=== PATIENT | male | born 1980 | race American Indian/Alaskan Native ===

== ENCOUNTER 2018-07-06 10:05 | Emergency (ER) | payer MEDICARE, OTHER ==
[2018-07-06 10:14] VITALS: BP 120/69
[2018-07-06] MEDS ORDERED: IBUPROFEN PO ONE (10:28)
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
== END 2018-07-06 10:42 | disposition home or self-care (01) ==
LOC: ED 10:05
DX: R51 Headache (principal); M25.512 Pain in left shoulder; F17.200 Nicotine dependence, unspecified, uncomplicated; V89.2XXA Person injured in unspecified motor-vehicle accident, traffic, initial encounter; Y93.89 Activity, other specified; Y92.488 Other paved roadways as the place of occurrence of the external cause; Y99.8 Other external cause status
CPT/HCPCS: 99282

== ENCOUNTER 2018-10-10 13:14 | Inpatient (IN) | payer MEDICARE ==
[2018-10-10] MEDS ORDERED: ASPIRIN PO ONE (13:42)
[2018-10-10 14:42] LABS: Basophils % (Auto) 1.1 % (0.0-1.8); Eosinophils # (Auto) 0.2 K/mm3 (0.0-0.4); Eosinophils % (Auto) 7.1 % (0.0-4.3); Hematocrit 33.8 % (35.5-45.6); Hemoglobin 11.5 gm/dl (11.8-15.2); Lymphocytes # (Auto) 0.5 K/mm3 (1.2-5.4); Lymphocytes % (Auto) 19.4 % (13.4-35.0); Mean Corpuscular HGB Conc 34 % (32-34); Mean Corpuscular Volume 92 fl (84-94); Monocytes # (Auto) 0.2 K/mm3 (0.0-0.8); Monocytes % (Auto) 8.2 % (0.0-7.3); Platelet Count 122 K/mm3 (140-440); Red Blood Count 3.66 M/mm3 (3.65-5.03); Red Cell Distribution Width 16.7 % (13.2-15.2)
[2018-10-10 14:57] LABS: BUN/Creatinine Ratio 17; Blood Urea Nitrogen 22 mg/dL (9-20); Calcium 9.1 mg/dL (8.4-10.2); Hemolysis Index 13
[2018-10-10] MEDS ORDERED: NACL 0.9% 1000 ML 1,000 ML IV ONE (16:34)
--- NOTE | 2018-10-10 16:43 | Emergency Department Report ---
ED Altered Mental Status HPI - General Chief Complaint: Chest Pain Stated Complaint: AMS Time Seen by Provider: 10/10/18 16:11 Source: patient, family (sister Mervat Nj ), EMS, old records reviewed Mode of arrival: Stretcher Limitations: No Limitations - History of Present Illness Initial Comments: Mr. Lemus is a 38 yo male HIV/AIDS who presents with AMS. His daughter called 911 because he was dazed with repetitive speech. He kept saying "I'm coming. I'm coming." Hx obtained from his sister Mervat Nj, who is his clinical decision maker. Mrs. Nj has noticed decline over the last 3 weeks. She has accompanied Mr. Lemus to his appointments with Dr. Kaiser. She, too, has noticed repetitive speech, drooling, cough. He has not been tastingh is food. He has had bloody diarrhea. "Brain scan" obtained 3 weeks ago was unremarkable according to the sister's report. It appears that his viral load is high. His HAART regimen has been changed recently. Dr. Kaiser recommended waiting to see if he improves. Toxoplasmosis was a consideration according to his sister Mrs. Nj. [facility] Dr. Kaiser Complaint: altered mental status, confusion -: Gradual, week(s) (3) Severity: moderate Consistency of Symptoms: waxing and waning, getting worse Context: HIV Associated Symptoms: malaise - Related Data Home Medications Medication Instructions Recorded Confirmed Last Taken 3 Hiv Meds 02/19/13 02/19/13 Unknown [place] 02/19/13 02/19/13 Unknown Prezcobix 800 mg-150 mg (Nf) 800 mg PO DAILY 02/08/17 02/08/17 1 Day Ago ~02/07/17 Truvada 133 mg-200 mg Tablet 200 mg PO DAILY 02/08/17 02/08/17 1 Day Ago ~02/07/17 Previous Rx's Medication Instructions Recorded Last Taken Type ceFAZolin Sodium [ceFAZolin] 2 gm IV Q8HR 28 Days vial 02/13/17 Unknown Rx Pantoprazole [Protonix TAB] 40 mg PO QDAY #30 tablet 02/16/17 Unknown Rx Sulfamethoxazole/Trimethoprim 1 each PO DAILY #30 tablet 02/16/17 Unknown Rx [Bactrim DS TAB] Zolpidem [Ambien] 10 mg PO QHS PRN #10 tablet 02/16/17 Unknown Rx oxyCODONE /ACETAMINOPHEN [Percocet 1 tab PO Q4H PRN #14 tablet 02/16/17 Unknown Rx 5/325 mg] Ibuprofen 800 mg PO TID 5 Days #15 tablet 07/06/18 Unknown Rx Allergies Allergy/AdvReac Type Severity Reaction Status Date / Time No Known Allergies Allergy Verified 07/06/18 10:11 ED Review of Systems ROS: Stated complaint: AMS Other details as noted in HPI Comment: All other systems reviewed and negative Constitutional: malaise. denies: fever ED Past Medical Hx - Past Medical History Previous Medical History?: Yes Hx Congestive Heart Failure: No Hx Diabetes: No Hx Deep Vein Thrombosis: No Hx Asthma: No Hx COPD: No Hx HIV: Yes - Surgical History Hx Pacemaker: No Hx Internal Defibrillator: No Additional Surgical History: Back - Social History Smoking Status: Current Every Day Smoker - Medications Home Medications: Home Medications Medication Instructions Recorded Confirmed Last Taken Type 3 Hiv Meds 02/19/13 02/19/13 Unknown History [place] 02/19/13 02/19/13 Unknown History Prezcobix 800 mg-150 mg (Nf) 800 mg PO DAILY 02/08/17 02/08/17 1 Day Ago History ~02/07/17 Truvada 133 mg-200 mg Tablet 200 mg PO DAILY 02/08/17 02/08/17 1 Day Ago History ~02/07/17 ceFAZolin Sodium [ceFAZolin] 2 gm IV Q8HR 28 Days vial 02/13/17 Unknown Rx Pantoprazole [Protonix TAB] 40 mg PO QDAY #30 tablet 02/16/17 Unknown Rx Sulfamethoxazole/Trimethoprim 1 each PO DAILY #30 tablet 02/16/17 Unknown Rx [Bactrim DS TAB] Zolpidem [Ambien] 10 mg PO QHS PRN #10 tablet 02/16/17 Unknown Rx oxyCODONE /ACETAMINOPHEN [Percocet 1 tab PO Q4H PRN #14 tablet 02/16/17 Unknown Rx 5/325 mg] Ibuprofen 800 mg PO TID 5 Days #15 tablet 07/06/18 Unknown Rx ED Physical Exam - General Limitations: No Limitations General appearance: alert, in no apparent distress, other (appears chronically ill and debilitated, dry flaky skin generalized global patchy, papular rash) - Head Head exam: Present: atraumatic, normocephalic - Eye Eye exam: Present: normal appearance - ENT ENT exam: Present: mucous membranes moist - Neck Neck exam: Present: normal inspection, full ROM - Respiratory Respiratory exam: Present: normal lung sounds bilaterally. Absent: respiratory distress, wheezes, rales, rhonchi - Cardiovascular Cardiovascular Exam: Present: normal rhythm, bradycardia, normal heart sounds. Absent: systolic murmur, diastolic murmur, rubs, gallop - GI/Abdominal GI/Abdominal exam: Present: soft, normal bowel sounds. Absent: distended, tenderness, guarding, rebound - Rectal Rectal exam: Present: deferred - Extremities Exam Extremities exam: Present: normal inspection - Back Exam Back exam: Present: normal inspection - Neurological Exam Neurological exam: Present: alert, altered (alert to name, slow to respond, frail) - Psychiatric Psychiatric exam: Present: flat affect, other (slow to respond, ) - Skin Skin exam: Present: warm, dry, other (patchy scaly rash generalized). Absent: rash - Assessment Assessment Interval: 24 hours post onset of symptoms +-20 minutes - Level of Consciousness 1a. Level of Consciousness: arousable/minor stimuli - LOC Questions 1b. LOC Questions: answers 1 question correctly - LOC Command 1c. LOC Commands: performs tasks correctly - Best Gaze 2. Best Gaze: normal - Visual 3. Visual: no visual loss - Facial Palsy 4. Facial Palsy: normal symmetrical movement - Motor Arm 5a. Motor Arm Left: no drift 5b. Motor Arm Right: no drift - Motor Leg 6a. Motor Leg Left: no drift 6b. Motor Leg Right: no drift - Limb Ataxia 7. Limb Ataxia: absent - Sensory 8. Sensory: normal - Best Language 9. Best Language: no aphasia - Dysarthria 10. Dysarthria: normal - Extinction and Inattention 11. Extinction/Inattention: no abnormality - Scoring Total Score: 2 Stroke Severity: Minor Stroke ED Course Vital Signs 10/10/18 13:39 Temperature 98.4 F Pulse Rate 42 L Respiratory 18 Rate Blood Pressure 122/81 - Lab Data Result diagrams: 10/10/18 14:03 10/10/18 14:03 Lab Results 10/10/18 10/10/18 10/10/18 Range/Units 13:23 14:03 14:03 WBC 2.8 L (4.5-11.0) K/mm3 RBC 3.66 (3.65-5.03) M/mm3 Hgb 11.5 L (11.8-15.2) gm/dl Hct 33.8 L (35.5-45.6) % MCV 92 (84-94) fl MCH 31 (28-32) pg MCHC 34 (32-34) % RDW 16.7 H (13.2-15.2) % Plt Count 122 L (140-440) K/mm3 Lymph % (Auto) 19.4 (13.4-35.0) % [place] % (Auto) 8.2 H (0.0-7.3) % Eos % (Auto) 7.1 H (0.0-4.3) % Baso % (Auto) 1.1 (0.0-1.8) % Lymph # 0.5 L (1.2-5.4) K/mm3 [place] # 0.2 (0.0-0.8) K/mm3 Eos # 0.2 (0.0-0.4) K/mm3 Baso # 0.0 (0.0-0.1) K/mm3 Seg Neutrophils % 64.2 (40.0-70.0) % Seg Neutrophils # 1.8 (1.8-7.7) K/mm3 Sodium 148 H (137-145) mmol/L Potassium 4.1 (3.6-5.0) mmol/L Chloride 115.1 H (98-107) mmol/L Carbon Dioxide 22 (22-30) mmol/L Anion Gap 15 mmol/L BUN 22 H (9-20) mg/dL Creatinine 1.3 (0.8-1.5) mg/dL Estimated GFR > 60 ml/min BUN/Creatinine Ratio 17 % Glucose 112 H (75-100) mg/dL POC Glucose 184 H (70-105) Calcium 9.1 (8.4-10.2) mg/dL Troponin T < 0.010 (0.00-0.029) ng/mL - Radiology Data Radiology results: report reviewed Chest x-ray: No acute process according to radiology report According to radiology report, CT head: Volume loss with white matter changes - Medical Decision Making Mr. Lemus has hx of HIV/AIDS. His ID specialist Dr. Kaiser at [facility] has initiated altered mental status work up over the past 3 weeks. I spoke with Dr. Perez from [facility] who had access to outpatient chart of Mr. Lemus. His CD4 is 7, noncompliant with ART. Recent CT head volume loss. DDx: TIA, CVA, seizure, HIV encephalopathy, opportunistic infections, HIV- associated dementia, medication effect due immune reconstitution with new ART regimen Aspirin provided. TPA is not indicated with likelihood of HIV related process causing encephalopathy. Admitted to hospitalist service I - NEXUS Criteria Focal neurological deficit present: No Midline spinal tenderness present: No Altered level of consciousness: Yes Intoxication present: No Distracting injury present: No NEXUS results: C-Spine cannot be cleared clinically by these results. Imaging is required. Critical care attestation.: If time is entered above; I have spent that time in minutes in the direct care of this critically ill patient, excluding procedure time. ED Disposition Clinical Impression: AIDS, Acute encephalopathy, Pancytopenia, Noncompliance with medication regimen, Dehydration Disposition: DC-09 OP ADMIT IP TO THIS HOSP Is pt being admited?: Yes Does the pt Need Aspirin: No Condition: Stable Referrals: PRIMARY CARE, [Referring] - 3-5 Days
--- NOTE | 2018-10-10 17:07 | Cat Scan Report ---
PROCEDURE: CT HEAD/BRAIN WO CON TECHNIQUE: Computerized tomography of the head was performed without contrast material. CT DOSE LENGTH PRODUCT: 1048.9 mGycm HISTORY: AMS COMPARISONS: None . FINDINGS: Brain: There is no evidence of intracranial hemorrhage. No parenchymal hemorrhage is seen. No mass lesions or mass effect is identified. No abnormal extra-axial fluid collections or masses are seen. There is mild decreased density seen in the periventricular white matter without mass effect. This i s fairly symmetric and does not exhibit any mass effect consistent with gliosis probably on the basis of microvascular disease or white matter changes of aging. Ventricles: The ventricles, sulcal pattern and fissures are prominent consistent with atrophy. Bone Windows: No evidence of fracture. Paranasal sinuses: Patchy mucosal disease seen in a few of the ethmoid air cells. Visualized portions of paranasal sinuses otherwise are clear. Maxillary sinuses are not included on this exam.. Mastoid air cells: Clear. IMPRESSION: There is evidence of mild atrophy and gliosis. No acute intracranial abnormalities are suspected. Mild paranasal sinus disease as described. . This document is electronically signed by Natan Peres MD., October 10 2018 05:05:32 PM ET
--- NOTE | 2018-10-10 17:12 | XRay Report ---
PROCEDURE: XR CHEST 1V AP TECHNIQUE: Chest radiograph single view. HISTORY: dyspnea COMPARISONS: None . FINDINGS: Heart: Normal. Mediastinum/Vessels: Normal. Lungs/Pleural space: No infiltrate, effusion, or pneumothorax. Bony thorax: No acute osseous abnormality. Life support devices: None. IMPRESSION: No radiographic evidence of acute cardiopulmonary abnormality. This document is electronically signed by Isabell Moran MD., October 10 2018 05:10:23 PM ET
[2018-10-10] MEDS ORDERED: NORCO 5/325 PO ONE (18:44)
[2018-10-10] MEDS ORDERED: ASPIRIN ONE (18:54)
--- NOTE | 2018-10-10 19:13 | History and Physical Report ---
History of Present Illness Chief complaint: He's really confused History of present illness: 38 YO Male with AIDS, Nicotine Dependence presents to ED for evaluation. Pt is confused and unable to provide detailed history. Pt history provided by his family who is at bedside during exam and interview. As per family, the patient has experienced worsening confusion, weakness, and repetitive speech over the past 3 weeks with progressively worsening symptoms during the same time frame. Pt has decreased oral intake, drooling, gait instability. Pt currently requires 5/6 assistance with activities of daily living. Pt sister also reports episode of "bloody diarrhea". EMS notified and upon arrival the patient was found to be in distress, and transported to [facility] ED. Pt seen and evaluated in ED and found to have Encephalopathy, AIDS, and suspected PML. Pt admitted to medical floor. No further history obtainable. Past History Past Medical History: HIV/AIDS Past Surgical History: Other ([facility] surgery) Social history: smoking Family history: no significant family history (reviewed) Medications and Allergies Allergies Allergy/AdvReac Type Severity Reaction Status Date / Time No Known Allergies Allergy Verified 07/06/18 10:11 Home Medications Medication Instructions Recorded Confirmed Last Taken Type 3 Hiv Meds 02/19/13 02/19/13 Unknown History [place] 02/19/13 02/19/13 Unknown History Prezcobix 800 mg-150 mg (Nf) 800 mg PO DAILY 02/08/17 02/08/17 1 Day Ago History ~02/07/17 Truvada 133 mg-200 mg Tablet 200 mg PO DAILY 02/08/17 02/08/17 1 Day Ago History ~02/07/17 ceFAZolin Sodium [ceFAZolin] 2 gm IV Q8HR 28 Days vial 02/13/17 Unknown Rx Pantoprazole [Protonix TAB] 40 mg PO QDAY #30 tablet 02/16/17 Unknown Rx Sulfamethoxazole/Trimethoprim 1 each PO DAILY #30 tablet 02/16/17 Unknown Rx [Bactrim DS TAB] Zolpidem [Ambien] 10 mg PO QHS PRN #10 tablet 02/16/17 Unknown Rx oxyCODONE /ACETAMINOPHEN [Percocet 1 tab PO Q4H PRN #14 tablet 02/16/17 Unknown Rx 5/325 mg] Ibuprofen 800 mg PO TID 5 Days #15 tablet 07/06/18 Unknown Rx Review of Systems ROS unobtainable: due to mental status Exam - Constitutional Vitals: Temp Pulse Resp BP Pulse Ox 98.4 F 42 L 18 122/81 10/10/18 13:39 10/10/18 13:39 10/10/18 13:39 10/10/18 13:39 General appearance: Present: mild distress, cachectic, disheveled - EENT Eyes: Present: PERRL ENT: hearing intact, clear oral mucosa - Neck Neck: Present: supple, normal ROM - Respiratory Respiratory effort: normal Respiratory: bilateral: CTA - Cardiovascular Heart Sounds: Present: S1 & S2. Absent: rub, click - Extremities Extremities: pulses symmetrical Extremity abnormal: edema Peripheral Pulses: within normal limits - Abdominal General gastrointestinal: Present: soft, non-tender, non-distended, normal bowel sounds Male genitourinary: Present: normal - Integumentary Integumentary: Present: dry, rash, decreased turgor - Musculoskeletal Musculoskeletal: generalized weakness - Psychiatric Psychiatric: no appropriate mood/affect, no intact judgment & insight, no memory intact - Neurologic Neurologic: CNII-XII intact, moves all extremities, no gait normal Results - Labs CBC & Chem 7: 10/10/18 14:03 10/10/18 14:03 Labs: Abnormal lab results 10/10/18 10/10/18 10/10/18 Range/Units 13:23 14:03 14:03 WBC 2.8 L (4.5-11.0) K/mm3 Hgb 11.5 L (11.8-15.2) gm/dl Hct 33.8 L (35.5-45.6) % RDW 16.7 H (13.2-15.2) % Plt Count 122 L (140-440) K/mm3 [place] % (Auto) 8.2 H (0.0-7.3) % Eos % (Auto) 7.1 H (0.0-4.3) % Lymph # 0.5 L (1.2-5.4) K/mm3 Sodium 148 H (137-145) mmol/L Chloride 115.1 H (98-107) mmol/L BUN 22 H (9-20) mg/dL Glucose 112 H (75-100) mg/dL POC Glucose 184 H (70-105) Assessment and Plan - Patient Problems (1) AIDS Current Visit: Yes Status: Acute Plan to address problem: continue HAART therapy, continue Bactrim daily, ID consulted in ED (2) Acute encephalopathy Current Visit: Yes Status: Acute Plan to address problem: CT head, Neuro check, aspiration precautions, treat HIV, (3) Eczema Current Visit: Yes Status: Acute Plan to address problem: topical skin moisturizer bid, (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 (5) PML (progressive multifocal leukoencephalopathy) Current Visit: Yes Status: Suspected Plan to address problem: MRI brain, supportive care, Neuro checks, aspiration precautions, seizure precautions, (6) Blood in stool Current Visit: Yes Status: Suspected Plan to address problem: Stool studies: Stool O&P, WBC, stool culture (7) DVT prophylaxis Current Visit: Yes Status: Acute Plan to address problem: SCD to BLE while in bed. prophylactic lovenox
[2018-10-10] MEDS ORDERED: TYLENOL PO PRN (19:14)
[2018-10-10] MEDS ORDERED: PROVENTIL IH PRN (19:14)
[2018-10-10] MEDS ORDERED: SODIUM CHLORIDE FLUSH SYRINGE 10 ML IV PRN (19:14)
[2018-10-10] MEDS ORDERED: ZOFRAN IV PRN (19:14)
[2018-10-10] MEDS ORDERED: AMBIEN PO PRN (19:15)
[2018-10-10] MEDS ORDERED: NACL 0.45% 1000 ML 1,000 ML IV SCH (20:00)
[2018-10-10] MEDS: IBUPROFEN PO SCH (21:43)
[2018-10-10] MEDS: NEURONTIN PO SCH (21:43)
[2018-10-10] MEDS: SODIUM CHLORIDE FLUSH SYRINGE 10 ML IV SCH (21:43)
[2018-10-10] MEDS ORDERED: NEURONTIN ONE (21:44)
[2018-10-10] MEDS ORDERED: IBUPROFEN ONE (21:44)
[2018-10-11 06:23] LABS: BUN/Creatinine Ratio 18; Blood Urea Nitrogen 23 mg/dL (9-20); Hemolysis Index 8
[2018-10-11] MEDS ORDERED: PREZCOBIX PO SCH ×2 (10:00)
[2018-10-11] MEDS ORDERED: LOVENOX SUB-Q SCH ×2 (10:00→11:00)
[2018-10-11] MEDS ORDERED: TRUVADA PO SCH (10:00)
[2018-10-11] MEDS: SODIUM CHLORIDE FLUSH SYRINGE 10 ML IV SCH ×2 (10:25→21:44)
[2018-10-11] MEDS: IBUPROFEN PO SCH ×3 (10:25→21:42)
[2018-10-11] MEDS: BACTRIM DS PO SCH (10:25)
[2018-10-11] MEDS: PROTONIX PO SCH (10:26)
[2018-10-11] MEDS: NEURONTIN PO SCH ×2 (10:27→21:44)
--- NOTE | 2018-10-11 11:11 | Progress Note ---
Assessment and Plan Assessment and plan: 38-year-old man with history of HIV, brought in by his daughter for altered mental status as he had repetitive speech, he was dazed. Per his daughter and he was also drooling and coughing he has had bloody diarrhea, and had a brain scan 3 weeks previously and was told that his viral load was high and his HAART regimen had just been changed sister ; M[place]at [place] ) Follow-up is with [facility] care Dr. Kaiser labs show white count of 2.8 hemoglobin 11.5, sodium 148, chloride 115 Chest x-ray no acute findings CT head; no acute findings Vital signs today reveal bradycardia Hospital course The patient's labs revealed hypernatremia, currently on hypotonic IV fluid CT head unremarkable, patient plan for MRI brain, will likely need LP, will do MRI first, ID consult, obtain ammonia level Continue weekly, obtain UDS Continue medications for prophylaxis for opportunistic organisms, Bloody diarrhea; stool studies ordered, GI consult as may be need scope and biopsy for opportunistic infection, hg stable at 11 Bradycardia; Twelve-lead EKG, cardiology consult Ordered creams/ointments for his eczema rash DVT prophylaxis was Lovenox, currently on hold as he is planned for LP tomorrow. We'll restart DVT prophylaxis 48 hours after lumbar puncture Case discussed with the sister, she gave consent for lumbar puncture Diagnoses HIV/AIDS hypernatremia Nicotine dependence bloody diarrhea Acute blood loss anemia Acute metabolic encephalopathy Bradycardia Eczema dehydration History Interval history: Patient continues to be drowsy and confused, he apparently had some more episodes of bloody diarrhea, Review of systems Constitutional: No fevers, no malaise, no joint pains CVS: No chest pain, no orthopnea, no dyspnea on exertion, no pedal edema GI: No abdominal pain, no vomiting, no constipation Respiratory: No shortness of breath, no wheezing, no coughing Hospitalist Physical - Physical exam Narrative exam: General.: No distress HEENT: Moist mucous membranes, extraocular muscles intact, no lymphadenopathy Neck: supple Cardiac: S1-S2 heard Lungs: clear to auscultation bilaterally Abdomen: soft , nontender, nondistended, bowel sounds positive Extremities: no edema clubbing or cyanosis Skin: Scaly rash all over his body Neurologic: Moves all extremities, opens eyes and speaks gibberish, confused, drowsy Psych: calm, and cooperative - Constitutional Vitals: Temp Pulse Resp BP Pulse Ox 97.3 F L 47 L 14 108/69 99 10/11/18 08:28 10/11/18 08:28 10/11/18 08:28 10/11/18 08:28 10/11/18 08:28 General appearance: Present: mild distress, cachectic, disheveled Results - Labs CBC & Chem 7: 10/10/18 14:03 10/11/18 05:17 Labs: Laboratory Last Values WBC 2.8 K/mm3 (4.5-11.0) L 10/10/18 14:03 RBC 3.66 M/mm3 (3.65-5.03) 10/10/18 14:03 Hgb 11.5 gm/dl (11.8-15.2) L 10/10/18 14:03 Hct 33.8 % (35.5-45.6) L 10/10/18 14:03 MCV 92 fl (84-94) 10/10/18 14:03 MCH 31 pg (28-32) 10/10/18 14:03 MCHC 34 % (32-34) 10/10/18 14:03 RDW 16.7 % (13.2-15.2) H 10/10/18 14:03 Plt Count 122 K/mm3 (140-440) L 10/10/18 14:03 Lymph % (Auto) 19.4 % (13.4-35.0) 10/10/18 14:03 [place] % (Auto) 8.2 % (0.0-7.3) H 10/10/18 14:03 Eos % (Auto) 7.1 % (0.0-4.3) H 10/10/18 14:03 Baso % (Auto) 1.1 % (0.0-1.8) 10/10/18 14:03 Lymph # 0.5 K/mm3 (1.2-5.4) L 10/10/18 14:03 [place] # 0.2 K/mm3 (0.0-0.8) 10/10/18 14:03 Eos # 0.2 K/mm3 (0.0-0.4) 10/10/18 14:03 Baso # 0.0 K/mm3 (0.0-0.1) 10/10/18 14:03 Seg Neutrophils % 64.2 % (40.0-70.0) 10/10/18 14:03 Seg Neutrophils # 1.8 K/mm3 (1.8-7.7) 10/10/18 14:03 Sodium 147 mmol/L (137-145) H 10/11/18 05:17 Potassium 4.4 mmol/L (3.6-5.0) 10/11/18 05:17 Chloride 116.2 mmol/L (98-107) H 10/11/18 05:17 Carbon Dioxide 24 mmol/L (22-30) 10/11/18 05:17 Anion Gap 11 mmol/L 10/11/18 05:17 BUN 23 mg/dL (9-20) H 10/11/18 05:17 Creatinine 1.3 mg/dL (0.8-1.5) 10/11/18 05:17 Estimated GFR > 60 ml/min 10/11/18 05:17 BUN/Creatinine Ratio 18 % 10/11/18 05:17 Glucose 66 mg/dL (75-100) L 10/11/18 05:17 POC Glucose 184 (70-105) H 10/10/18 13:23 Calcium 9.0 mg/dL (8.4-10.2) 10/11/18 05:17 Troponin T < 0.010 ng/mL (0.00-0.029) 10/10/18 17:41 Active Medications - Current Medications Current Medications: Generic Name Dose Route Start Last Admin Trade Name Freq PRN Reason Stop Dose Admin Acetaminophen 650 mg 10/10/18 19:14 Tylenol PO Q4H PRN Pain MILD(1-3)/Fever >100.5/QUINN Albuterol 2.5 mg 10/10/18 19:14 Proventil IH Q4HRT PRN Shortness Of Breath Enoxaparin Sodium 40 mg 10/11/18 11:00 Lovenox SUB-Q QDAY@1000 DILIA Gabapentin 300 mg 10/10/18 22:00 10/11/18 10:27 Neurontin PO 300 mg BID DILIA Administration Dextrose 1,000 mls @ 125 mls/hr 10/11/18 12:00 D5w IV DIRECT DILIA Ibuprofen 800 mg 10/10/18 20:00 10/11/18 10:25 Motrin PO 800 mg TID DILIA Administration Miscellaneous Medication 800 mg 10/11/18 10:00 Prezcobix 800 Mg-150 Mg (Nf) PO DAILY DILIA Miscellaneous Medication 200 mg 10/11/18 10:00 Truvada 133 Mg-200 Mg Tablet PO DAILY DILIA Ondansetron HCl 4 mg 10/10/18 19:14 Zofran IV Q8H PRN Nausea And Vomiting Oxycodone/Acetaminophen 1 tab 10/10/18 19:14 Percocet 5/325 PO Q6H PRN Pain, Moderate (4-6) Pantoprazole Sodium 40 mg 10/11/18 10:00 10/11/18 10:26 Protonix PO 40 mg QDAY DILIA Administration Sodium Chloride 10 ml 10/10/18 22:00 10/11/18 10:25 Sodium Chloride Flush Syringe 10 Ml IV 10 ml BID DILIA Administration Sodium Chloride 10 ml 10/10/18 19:14 Sodium Chloride Flush Syringe 10 Ml IV PRN PRN LINE FLUSH Trimethoprim/Sulfamethoxazole 1 each 10/11/18 10:00 10/11/18 10:25 Bactrim Ds PO 1 each DAILY DILIA Administration Zolpidem Tartrate 10 mg 10/10/18 19:15 Ambien PO QHS PRN Insomnia
--- NOTE | 2018-10-11 13:28 | Consultation ---
History of Present Illness - Reason for Consult Consult date: 10/11/18 AMS/AIDS/bloody diarrhea Requesting physician: SURAJ HAWLEY - History of Present Illness 38 y/o male with history of HIV infection follows with Dr Kaiser at [facility] since Jun 2018, last CD4=7, [id number] on 09/20/2018, previously non-compliance with meds, currently on Biktarvy, Bactrim and azithromycin, without missing any dose, last time seen at [facility] on 09/20/2018 with w/u for AMS, also history of extensive eczema; known to our ID service seen during admission on 02/07/2017 due to 2-week history of progressive multiple nodular lesions over chest, back, thighs and buttocks. Patient reports it all started as a rash 2 months ago found to have extensive multiple cutaneous abscesses on chest, back, buttocks, thighs due to MSSA with MSSA bacteremia and right femoral zoster. He was treated with cefazolin 2 g IV q 8 hours for 4 weeks. he was on prezcobix, truvada and bactrim DS. Per Dr Kaiser's office, he had a recent CT head which was negative. Also, he was checked for RPR which was negative and Toxoplasma IgG positive. Unfortunately, he was on due to 3-week history of worsening confusion, generalized weakness, repetitive speech and poor memory. Also noted with decreased oral intake, drooling, gait instability. family reports an episode of "bloody diarrhea". Patient is not the best historian, with difficult to recall details and slow speech. In the ED, temp 98.4, HR 42, R 18, O2 sat 98%, BP 122/81. WBC 2.8, Hg 11.5, Plat 122. Creat 1.3. CXR showed no acute cardiopulmonary process. CT head showed no intracraneal lesions or hemorrhage. Mild decreased bilateral per iventricular density with white matter without mass effect c/w mild atrophic gliosis, patchy ethmoidal mucosal. Review of Systems: limited Past History Past Medical History: HIV/AIDS Past Surgical History: Other ([facility] surgery) Social history: smoking Family history: no significant family history (reviewed) Medications and Allergies Allergies Allergy/AdvReac Type Severity Reaction Status Date / Time No Known Allergies Allergy Verified 07/06/18 10:11 Home Medications Medication Instructions Recorded Confirmed Last Taken Type 3 Hiv Meds 02/19/13 02/19/13 Unknown History [place] 02/19/13 02/19/13 Unknown History Prezcobix 800 mg-150 mg (Nf) 800 mg PO DAILY 02/08/17 02/08/17 1 Day Ago History ~02/07/17 Truvada 133 mg-200 mg Tablet 200 mg PO DAILY 02/08/17 02/08/17 1 Day Ago History ~02/07/17 ceFAZolin Sodium [ceFAZolin] 2 gm IV Q8HR 28 Days vial 02/13/17 Unknown Rx Pantoprazole [Protonix TAB] 40 mg PO QDAY #30 tablet 02/16/17 Unknown Rx Sulfamethoxazole/Trimethoprim 1 each PO DAILY #30 tablet 02/16/17 Unknown Rx [Bactrim DS TAB] Zolpidem [Ambien] 10 mg PO QHS PRN #10 tablet 02/16/17 Unknown Rx oxyCODONE /ACETAMINOPHEN [Percocet 1 tab PO Q4H PRN #14 tablet 02/16/17 Unknown Rx 5/325 mg] Ibuprofen 800 mg PO TID 5 Days #15 tablet 07/06/18 Unknown Rx Active Meds: Active Medications Acetaminophen (Tylenol) 650 mg PO Q4H PRN PRN Reason: Pain MILD(1-3)/Fever >100.5/QUINN Albuterol (Proventil) 2.5 mg IH Q4HRT PRN PRN Reason: Shortness Of Breath Enoxaparin Sodium (Lovenox) 40 mg SUB-Q QDAY@1000 [facility] Last Admin: 10/11/18 11:45 Dose: 40 mg Documented by: Gabapentin (Neurontin) 300 mg PO BID [facility] Last Admin: 10/11/18 10:27 Dose: 300 mg Documented by: Dextrose (D5w) 1,000 mls @ 125 mls/hr IV DIRECT [facility] Ibuprofen (Motrin) 800 mg PO TID [facility] Last Admin: 10/11/18 10:25 Dose: 800 mg Documented by: Miscellaneous Medication (Prezcobix 800 Mg-150 Mg (Nf)) 800 mg PO DAILY [facility] Miscellaneous Medication (Truvada 133 Mg-200 Mg Tablet) 200 mg PO DAILY [facility] Ondansetron HCl (Zofran) 4 mg IV Q8H PRN PRN Reason: Nausea And Vomiting Oxycodone/Acetaminophen (Percocet 5/325) 1 tab PO Q6H PRN PRN Reason: Pain, Moderate (4-6) Pantoprazole Sodium (Protonix) 40 mg PO QDAY [facility] Last Admin: 10/11/18 10:26 Dose: 40 mg Documented by: Sodium Chloride (Sodium Chloride Flush Syringe 10 Ml) 10 ml IV BID [facility] Last Admin: 10/11/18 10:25 Dose: 10 ml Documented by: Sodium Chloride (Sodium Chloride Flush Syringe 10 Ml) 10 ml IV PRN PRN PRN Reason: LINE FLUSH Trimethoprim/Sulfamethoxazole (Bactrim Ds) 1 each PO DAILY [facility] Last Admin: 10/11/18 10:25 Dose: 1 each Documented by: Zolpidem Tartrate (Ambien) 10 mg PO QHS PRN PRN Reason: Insomnia Physical Examination - Physical Exam Narrative exam: General appearance: Alert in NAD, confused Eyes: anicteric sclerae, moist conjunctivae; no lid-lag; PERRLA HENT: Atraumatic; oropharynx clear Neck: Trachea midline; supple, no thyromegaly or lymphadenopathy Lungs: CTA, +brian surg scars in thorax CV: RRR Abdomen: Soft, non-tender; no masses or hepatosplenomegaly Extremities: No peripheral edema or extremity lymphadenopathy Skin: generalized scaly rash over face, torso Psych: no agitation. Neuro: alert slow speech, confusion, difficulties to name objects/names - Constitutional Vitals: Vital Signs Temp Pulse Resp BP Pulse Ox 97.3 F L 47 L 14 108/69 98 10/11/18 08:28 10/11/18 08:28 10/11/18 08:28 10/11/18 08:28 10/11/18 11:00 Temperature -Last 24 Hours Temperature 97.3 F Temperature 98.4 F Results - Labs CBC & Chem 7: 10/10/18 14:03 10/11/18 05:17 Labs: Abnormal lab results 10/10/18 10/10/18 10/10/18 Range/Units 13:23 14:03 14:03 WBC 2.8 L (4.5-11.0) K/mm3 Hgb 11.5 L (11.8-15.2) gm/dl Hct 33.8 L (35.5-45.6) % RDW 16.7 H (13.2-15.2) % Plt Count 122 L (140-440) K/mm3 [place] % (Auto) 8.2 H (0.0-7.3) % Eos % (Auto) 7.1 H (0.0-4.3) % Lymph # 0.5 L (1.2-5.4) K/mm3 Sodium 148 H (137-145) mmol/L Chloride 115.1 H (98-107) mmol/L BUN 22 H (9-20) mg/dL Glucose 112 H (75-100) mg/dL POC Glucose 184 H (70-105) 10/11/18 Range/Units 05:17 WBC (4.5-11.0) K/mm3 Hgb (11.8-15.2) gm/dl Hct (35.5-45.6) % RDW (13.2-15.2) % Plt Count (140-440) K/mm3 [place] % (Auto) (0.0-7.3) % Eos % (Auto) (0.0-4.3) % Lymph # (1.2-5.4) K/mm3 Sodium 147 H (137-145) mmol/L Chloride 116.2 H (98-107) mmol/L BUN 23 H (9-20) mg/dL Glucose 66 L (75-100) mg/dL POC Glucose (70-105) Assessment and Plan Cultures: none Assessment: 38 y/o male with history of HIV infection follows with Dr Kaiser at [facility] since Jun 2018, last CD4=7, [id number] on 09/20/2018, previously non-compliance with meds, currently on Biktarvy, Bactrim and azithromycin, without missing any dose; admitted on 10/10/2018 due to 3-week history of worsening confusion, generalized weakness, repetitive speech and poor memory. Also noted with decreased oral intake, drooling, gait instability. family reports an episode of "bloody diarrhea". -Acute on chronic encephalopathy: worsening; patient has been seen at Dr Kaiser's office for AMS 3 weeks ago. He had a recent CT head which was negative. Also, he was checked for RPR which was negative and Toxoplasma IgG positive. Repeat CT head showed no intracraneal lesions or hemorrhage. Mild decreased bilateral periventricular density with white matter without mass effect c/w mild atrophic gliosis, patchy ethmoidal mucosal. Patient was re-started on ART Biktarvy in Jun 2018. 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 No fever. Denies headaches or focal neurologic signs. DDx toxoplasma encephalitis, KICK PRESS OPERATOR lymphoma, mycobacterial infection, cryptococcosis, less likely multifocal leukoencephalopathy. 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 Recent TB test at HIV office negative. -Bloody stools ? colitis due to CMV vs other etiology -Pancytopenia: from HIV versus opportuistic ifnections -Chronic generalized eczema -History of MSSA cutaneous abscesses with MSSA bacteremia -History of right femoral zoster. Recommendations: - obtain lumbar punture for opening pressure and send CSF specimen for Gram stain and culture, glucose, protein, VDRL, HSV-PCR, CMV-PCR, EBV PCR, cryptococcal antigen, LINDA virus, and culture - check serum Crypto antigen, RPR - check AFB-blood cultures - MRI brain with contrast - check CT abdomen eval for colitis - Neurology consult - stool for O+P, giardia/cryptosporidium and culture - Continue Biktarvy 1 tab q day - continue Bactrim 1 tab qday and azithromycin 1200 mg po qweek Will follow. Roselia Edwards MD Infectious Diseases Rides Attendant [facility] M [phone] O [phone]
[2018-10-11] MEDS: D5W 1,000 ML IV SCH (15:37)
[2018-10-11 19:57] LABS: Bilirubin,Urine NEG (Negative); Blood,Urine NEG (Negative); Color,Urine Yellow (Yellow); Protein,Urine <15 mg/dL mg/dL (Negative)
[2018-10-11 20:01] LABS: Amphetamine Screen,Urine PRESUMPTIVE NEGATIVE; Benzodiazepines Screen,Urine PRESUMPTIVE NEGATIVE; Cannabinoid Screen,Urine PRESUMPTIVE NEGATIVE; Cocaine Screen,Urine PRESUMPTIVE NEGATIVE; Methadone Screen,Urine PRESUMPTIVE NEGATIVE; Opiate Screen,Urine PRESUMPTIVE NEGATIVE
[2018-10-11 20:47] LABS: INR 0.93 (0.87-1.13)
[2018-10-11 20:48] LABS: Partial Thromboplastin Time 53.2 Sec. (24.2-36.6)
[2018-10-11] MEDS: TEMOVATE TP SCH (22:49)
[2018-10-12] MEDS: D5W 1,000 ML IV SCH ×2 (02:56→13:28)
[2018-10-12 05:34] LABS: Basophils % (Auto) 0.7 % (0.0-1.8); Eosinophils # (Auto) 0.1 K/mm3 (0.0-0.4); Eosinophils % (Auto) 4.2 % (0.0-4.3); Hematocrit 32.6 % (35.5-45.6); Lymphocytes # (Auto) 0.6 K/mm3 (1.2-5.4); Lymphocytes % (Auto) 17.8 % (13.4-35.0); Mean Corpuscular HGB Conc 34 % (32-34); Mean Corpuscular Volume 93 fl (84-94); Monocytes # (Auto) 0.2 K/mm3 (0.0-0.8); Monocytes % (Auto) 6.7 % (0.0-7.3); Red Cell Distribution Width 17.5 % (13.2-15.2)
[2018-10-12 05:36] LABS: Platelet Count 98 K/mm3 (140-440)
[2018-10-12 06:00] LABS: Albumin 2.7 g/dL (3.9-5); Calcium 8.6 mg/dL (8.4-10.2)
[2018-10-12] MEDS ORDERED: XYLOCAINE 1% 20 mL ONE (08:10)
[2018-10-12] MEDS: IBUPROFEN PO SCH ×3 (08:30→21:02)
[2018-10-12] MEDS: PERCOCET 5/325 PO PRN ×2 (08:30→13:05)
--- NOTE | 2018-10-12 09:51 | Progress Note ---
Assessment and Plan Cultures: none Assessment: 38 y/o male with history of HIV infection follows with Dr Kaiser at [facility] since Jun 2018, last CD4=7, [id number] on 09/20/2018, previously non-compliance with meds, currently on Biktarvy, Bactrim and azithromycin, without missing any dose; admitted on 10/10/2018 due to 3-week history of worsening confusion, generalized weakness, repetitive speech and poor memory. Also noted with decreased oral intake, drooling, gait instability. family reports an episode of "bloody diarrhea". -Acute on chronic encephalopathy: worsening; patient has been seen at Dr Kaiser's office for AMS 3 weeks ago. He had a recent CT head which was negative. Also, he was checked for RPR which was negative and Toxoplasma IgG positive. Repeat CT head showed no intracraneal lesions or hemorrhage. Mild decreased bilateral periventricular density with white matter without mass effect c/w mild atrophic gliosis, patchy ethmoidal mucosal. Patient was re-started on ART Biktarvy in Jun 2018. 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 No fever. Denies headaches or focal neurologic signs. DDx toxoplasma encephalitis, FOIL WRAPPER lymphoma, mycobacterial infection, cryptococcosis, less likely multifocal leukoencephalopathy. 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 Recent TB test at HIV office negative. CSF wbc 1, Lymph 100%, glucose 68, protein 55 which is not c/w meningitis. -Bloody stools ? colitis due to CMV vs other etiology -Pancytopenia: from HIV versus opportuistic ifnections -Chronic generalized eczema -History of MSSA cutaneous abscesses with MSSA bacteremia -History of right femoral zoster. -New onset Seizure? - observed at bedside. Neurology consult placed for seizures and EEG. Brain MRI show cortical atrophy which is more pronounced in the frontal and temporal lobes and consistent with frontotemporal dementia. Moderate nonspecific white matter disease. Recommendations: - f/u CSF VDRL, HSV-PCR, CMV-PCR, EBV PCR, cryptococcal antigen, LINDA virus, and culture - f/u serum Crypto antigen, RPR - f/u AFB-blood cultures - f/u CT abdomen eval for colitis - f/u stool for O+P, giardia/cryptosporidium and culture - Continue Biktarvy 1 tab q day - continue Bactrim 1 tab qday and azithromycin 1200 mg po qweek Taya Kern NP [facility] M: [phone] O:[phone] Subjective Date of service: 10/12/18 Interval history: Patient seen and examined. Sitting up in the bed talking on the phone, + seizure activity, code called. Dr. Birch and Nursing at bedside. Objective - Exam Narrative Exam: General appearance: Alert in NAD then + Seizure activity observed. Eyes: anicteric sclerae, moist conjunctivae; no lid-lag; PERRLA HENT: Atraumatic; oropharynx clear Neck: Trachea midline; supple, no thyromegaly or lymphadenopathy Lungs: CTA, +brian surg scars in thorax CV: RRR Abdomen: Soft, non-tender; no masses or hepatosplenomegaly Extremities: No peripheral edema or extremity lymphadenopathy Skin: generalized scaly rash over face, torso Psych: affect normal then seizure activity observed Neuro: +Seizure activity - Constitutional Vitals: Vital Signs Temp Pulse Resp BP Pulse Ox 97.6 F 57 L 18 99/54 100 10/12/18 08:05 10/12/18 08:05 10/12/18 08:05 10/12/18 08:05 10/12/18 08:05 Temperature -Last 24 Hours Temperature 97.6 F Temperature 97.3 F - Labs CBC & Chem 7: 10/12/18 05:10 10/12/18 05:10 Labs: Abnormal lab results 10/11/18 10/11/18 10/11/18 Range/Units 11:05 16:55 20:25 WBC (4.5-11.0) K/mm3 RBC (3.65-5.03) M/mm3 Hgb (11.8-15.2) gm/dl Hct (35.5-45.6) % RDW (13.2-15.2) % Plt Count 102 L (140-440) K/mm3 Lymph # (1.2-5.4) K/mm3 Seg Neutrophils % (40.0-70.0) % APTT (24.2-36.6) Sec. Chloride (98-107) mmol/L BUN (9-20) mg/dL Creatinine (0.8-1.5) mg/dL Glucose (75-100) mg/dL Magnesium (1.7-2.3) mg/dL Ammonia < 10.0 L (25-60) umol/L Total Protein (6.3-8.2) g/dL Albumin (3.9-5) g/dL Ur Specific [place] 1.038 H (1.003-1.030) 10/11/18 10/12/18 10/12/18 Range/Units 20:25 05:10 05:10 WBC 3.4 L (4.5-11.0) K/mm3 RBC 3.50 L (3.65-5.03) M/mm3 Hgb 11.0 L (11.8-15.2) gm/dl Hct 32.6 L (35.5-45.6) % RDW 17.5 H (13.2-15.2) % Plt Count 98 L (140-440) K/mm3 Lymph # 0.6 L (1.2-5.4) K/mm3 Seg Neutrophils % 70.6 H (40.0-70.0) % APTT 53.2 H (24.2-36.6) Sec. Chloride 112.6 H (98-107) mmol/L BUN 24 H (9-20) mg/dL Creatinine 1.6 H (0.8-1.5) mg/dL Glucose 106 H (75-100) mg/dL Magnesium 1.50 L (1.7-2.3) mg/dL [place] (25-60) umol/L Total Protein 6.2 L (6.3-8.2) g/dL Albumin 2.7 L (3.9-5) g/dL Ur Specific [place] (1.003-1.030)
--- NOTE | 2018-10-12 10:04 | Procedure Note ---
Date of procedure: 10/12/18 Pre-op diagnosis: meningitis Post-op diagnosis: same Procedure: Flouro guided lumbar puncture Findings: elevated opening pressure of 20 cm of water Anesthesia: local Surgeon: LAURA CHOUDHURY Estimated blood loss: none Pathology: list (4 csf tubes) Specimen disposition: to lab Condition: stable Disposition: floor
[2018-10-12 11:08] LABS: Glucose,CSF 68 mg/dL
--- NOTE | 2018-10-12 11:47 | Fluoroscopy Report ---
FLUOROSCOPY LUMBAR PUNCTURE History: Meningitis Description of procedure: Informed consent was obtained from a family member. Sterile technique was utilized. 1% lidocaine for skin anesthesia. Using fluoroscopy guidance, lumbar puncture was performed at the L2-3 level. One fluoroscopic image was saved. There was spontaneous return of clear CSF. The opening pressure was mildly elevated measuring 20 cm of water. 4 CSF tubes were collected for laboratory analysis. No complications. Impression: Successful fluoroscopy guided lumbar puncture. The opening pressure was mildly elevated measuring 20 cm of water.
[2018-10-12 12:00] LABS: Appearance,CSF Clear; Red Blood Cell,CSF 0 /mm3 (0-0); Total Cells Counted 15 /mm3; White Blood Cell,CSF 1 /mm3 (1-10)
--- NOTE | 2018-10-12 12:18 | Consultation ---
History of Present Illness Consult date: 10/12/18 Consult reason: bradycardia History of present illness: Patient is a 38yr old male with HIV disease who is admitted with altered mental status. It's reported patient was hypoglycemic with a glucose of [address] on [address] arrival[address] Head [address] scan reports no acute intracranial process. An ECG shows marked sinus bradycardia with early repolarization abnormalities, rate 42. Cardiac consultation requested. There are no complaints of chest pain or unusual shortness of breath. Laboratory studies shows a low magnesium at 1.5. There is also a TSH of 15.8 with a normal T4 suggestive of hypothyroidism. Past History Past Medical History: HIV/AIDS Past Surgical History: Other ([facility] surgery) Social history: smoking Family history: no significant family history (reviewed) Medications and Allergies Allergies Allergy/AdvReac Type Severity Reaction Status Date / Time No Known Allergies Allergy Verified 07/06/18 10:11 Home Medications Medication Instructions Recorded Confirmed Last Taken Type Sulfamethoxazole/Trimethoprim 1 each PO DAILY #30 tablet 02/16/17 10/12/18 Unknown Rx [Bactrim DS TAB] Ammonium Lactate [Lac-Hydrin 1 applicatio TP BID 10/12/18 10/12/18 Unknown History Lotion] Azithromycin [Zithromax TAB] 600 mg PO QDAY 10/12/18 10/12/18 Unknown History Bictegrav/Emtricit/Tenofov Ala 1 tab PO QDAY 10/12/18 10/12/18 Unknown History [Biktarvy 50-200-25 mg (Nf)] Ergocalciferol (Vitamin D2) 50,000 unit PO QDAY 10/12/18 10/12/18 Unknown History [Drisdol] Fluticasone [Flonase] 1 spray NS QDAY 10/12/18 10/12/18 Unknown History Meloxicam [Mobic] 7.5 mg PO QDAY 10/12/18 10/12/18 Unknown History Miconazole 2% [Monistat-Derm] 1 applicatio TP BID 10/12/18 10/12/18 Unknown History Active Meds: Active Medications Acetaminophen (Tylenol) 650 mg PO Q4H PRN PRN Reason: Pain MILD(1-3)/Fever >100.5/QUINN Albuterol (Proventil) 2.5 mg IH Q4HRT PRN PRN Reason: Shortness Of Breath Clobetasol Propionate (Temovate) 1 applic TP BID [facility] Last Admin: 10/11/18 22:49 Dose: 1 applic Documented by: Gabapentin (Neurontin) 300 mg PO BID [facility] Last Admin: 10/11/18 21:44 Dose: 300 mg Documented by: Dextrose (D5w) 1,000 mls @ 125 mls/hr IV DIRECT [facility] Last Admin: 10/12/18 02:56 Dose: 125 mls/hr Documented by: Ibuprofen (Motrin) 800 mg PO TID [facility] Last Admin: 10/11/18 21:42 Dose: 800 mg Documented by: Miscellaneous Medication (Truvada 133 Mg-200 Mg Tablet) 200 mg PO DAILY [facility] Miscellaneous Medication (Prezcobix 800mg-150 Mg Tabs) 800 mg PO DAILY [facility] Ondansetron HCl (Zofran) 4 mg IV Q8H PRN PRN Reason: Nausea And Vomiting Oxycodone/Acetaminophen (Percocet 5/325) 1 tab PO Q6H PRN PRN Reason: Pain, Moderate (4-6) Pantoprazole Sodium (Protonix) 40 mg PO QDAY [facility] Last Admin: 10/11/18 10:26 Dose: 40 mg Documented by: Sodium Chloride (Sodium Chloride Flush Syringe 10 Ml) 10 ml IV BID [facility] Last Admin: 10/11/18 21:44 Dose: 10 ml Documented by: Sodium Chloride (Sodium Chloride Flush Syringe 10 Ml) 10 ml IV PRN PRN PRN Reason: LINE FLUSH Trimethoprim/Sulfamethoxazole (Bactrim Ds) 1 each PO DAILY [facility] Last Admin: 10/11/18 10:25 Dose: 1 each Documented by: Zolpidem Tartrate (Ambien) 10 mg PO QHS PRN PRN Reason: Insomnia Physical Examination Vital Signs Temp Pulse Resp BP 98.4 F 42 L 18 122/81 10/10/18 13:39 10/10/18 13:39 10/10/18 13:39 10/10/18 13:39 General appearance: no acute distress Cardiac: Positive: Bradycardia Results 10/12/18 05:10 10/12/18 05:10 Cardiac Enzymes 10/12/18 Range/Units 05:10 AST 19 (5-40) units/L Coagulation 10/11/18 Range/Units 20:25 PT 13.0 (12.2-14.9) Sec. INR 0.93 (0.87-1.13) APTT 53.2 H (24.2-36.6) Sec. CBC 10/11/18 10/12/18 Range/Units 20:25 05:10 WBC 3.4 L (4.5-11.0) K/mm3 RBC 3.50 L (3.65-5.03) M/mm3 Hgb 11.0 L (11.8-15.2) gm/dl Hct 32.6 L (35.5-45.6) % Plt Count 102 L 98 L (140-440) K/mm3 Lymph # 0.6 L (1.2-5.4) K/mm3 [place] # 0.2 (0.0-0.8) K/mm3 Eos # 0.1 (0.0-0.4) K/mm3 Baso # 0.0 (0.0-0.1) K/mm3 Comprehensive Metabolic Panel 10/12/18 Range/Units 05:10 Sodium 144 (137-145) mmol/L Potassium 4.7 (3.6-5.0) mmol/L Chloride 112.6 H (98-107) mmol/L Carbon Dioxide 23 (22-30) mmol/L BUN 24 H (9-20) mg/dL Creatinine 1.6 H (0.8-1.5) mg/dL Glucose 106 H (75-100) mg/dL Calcium 8.6 (8.4-10.2) mg/dL AST 19 (5-40) units/L ALT 27 (7-56) units/L Alkaline Phosphatase 124 (35-129) units/L Total Protein 6.2 L (6.3-8.2) g/dL Albumin 2.7 L (3.9-5) g/dL Assessment and Plan Altered mental status Sinus bradycardia s/t hypothyroidism, TSH 15.8 HIV disease Acute renal failure Hypomagnesemia
--- NOTE | 2018-10-12 13:19 | Magnetic Resonance Report ---
MRI BRAIN WITHOUT AND WITH CONTRAST: 10/12/18 07:19:00 CLINICAL: Confusion. TECHNIQUE: Axial diffusion, T1, FLAIR, gradient echo T2*, and coronal and axial T2 and sagittal T1 plus coronal and axial postcontrast T1 sequences on a 1.5 Brinda magnet. 10.0 cc of Multihance was injected intravenously for the contrast portion of the exam. Consent was obtained prior to the administration of contrast. FINDINGS: Global enlargement of sulci and ventricles but more pronounced enlargement involving the frontal and temporal lobes. No restricted diffusion. Moderate bilateral periventricular white matter and multifocal subcortical white matter hyperintensities on FLAIR and T2. No mass or enhancing lesion. No hemorrhage, edema or extra-axial collection. Normal pituitary and optic chiasm. The brainstem and cerebellum are normal. Intact vascular flow voids. The orbits and soft tissues are normal. Bilateral ethmoid sinus opacification and partial opacification of the left maxillary sinus. Normal calvarium and skull base. IMPRESSION: 1. Cortical atrophy which is more pronounced in the frontal and temporal lobes and consistent with frontotemporal dementia. 2. Moderate nonspecific white matter disease. 3. No acute brain changes. 4. Bilateral ethmoid and left maxillary sinusitis.
[2018-10-12] MEDS: SODIUM CHLORIDE FLUSH SYRINGE 10 ML IV SCH ×2 (13:28→21:06)
[2018-10-12] MEDS: PROTONIX PO SCH (13:28)
[2018-10-12] MEDS: NEURONTIN PO SCH ×2 (13:28→21:02)
[2018-10-12] MEDS: BACTRIM DS PO SCH (13:28)
[2018-10-12] MEDS: TEMOVATE TP SCH ×2 (13:29→21:06)
[2018-10-12] MEDS ORDERED: ATIVAN IV ONE (14:34)
[2018-10-12] MEDS ORDERED: ATIVAN ONE (14:35)
--- NOTE | 2018-10-12 14:42 | Progress Note ---
Assessment and Plan Assessment and plan: 38-year-old man with history of HIV, brought in by his daughter for altered mental status as he had repetitive speech, he was dazed. Per his daughter and he was also drooling and coughing he has had bloody diarrhea, and had a brain scan 3 weeks previously and was told that his viral load was high and his HAART regimen had just been changed --New onset seizures; seizure precautions Ativan as needed, patient just had an MRI lumbar puncture, ID following Neurology consult, EEG, supportive care. CT head without contrast 2 days ago no acute abnormality Mild atrophy and mild gliosis mild paranasal sinus disease, --Acute metabolic encephalopathy; multifactorial Neuro checks, neuro workup, neurology consult --Bradycardia; persistent, cardiology following --HIV/AIDS; management per ID --hypernatremia; significant improvement, continue current management --Hyperthyroidism; with elevated TSH Normal T4, repeat TFTs --Tobacco use; smoking cessation counseling Nicotine patch if needed --Eczema/AIDS dermatitis; --DVT prophylaxis Lovenox Closely monitor the patient and adjust management as needed Follow neurology evaluation and recommendations Critical care time 40 min History Interval history: Patient had an episode of witnessed seizure Code MET was called, patient received 2 mg of IV Ativan When I evaluated the patient patient is postictal, unresponsive. No new episodes of seizure activity noted Patient had negative CT head 2 days ago Underwent MRI brain; no acute abnormality except for atrophy and gliosis Sinus disease Patient not in acute distress Vital signs noted Hospitalist Physical - Constitutional Vitals: Temp Pulse Resp BP Pulse Ox 97.6 F 57 L 18 99/54 100 10/12/18 08:05 10/12/18 12:31 10/12/18 08:05 10/12/18 08:05 10/12/18 08:05 General appearance: Present: no acute distress, well-nourished, other (unr esponsive) - EENT Eyes: Present: PERRL, EOM intact - Neck Neck: Present: supple, normal ROM - Respiratory Respiratory effort: normal Respiratory: bilateral: diminished, negative: rales, rhonchi, wheezing - Cardiovascular Rhythm: regular Heart Sounds: Present: S1 & S2 - Extremities Extremities: no ischemia, No edema - Abdominal General gastrointestinal: soft, non-tender, non-distended, normal bowel sounds - Integumentary Integumentary: Present: clear, warm - Psychiatric Psychiatric: other (unresponsive postictal,) - Neurologic Neurologic: other (unresponsive ) Results - Labs CBC & Chem 7: 10/12/18 05:10 10/12/18 05:10 Labs: Laboratory Last Values WBC 3.4 K/mm3 (4.5-11.0) L 10/12/18 05:10 RBC 3.50 M/mm3 (3.65-5.03) L 10/12/18 05:10 Hgb 11.0 gm/dl (11.8-15.2) L 10/12/18 05:10 Hct 32.6 % (35.5-45.6) L 10/12/18 05:10 MCV 93 fl (84-94) 10/12/18 05:10 MCH 31 pg (28-32) 10/12/18 05:10 MCHC 34 % (32-34) 10/12/18 05:10 RDW 17.5 % (13.2-15.2) H 10/12/18 05:10 Plt Count 98 K/mm3 (140-440) L 10/12/18 05:10 Lymph % (Auto) 17.8 % (13.4-35.0) 10/12/18 05:10 [place] % (Auto) 6.7 % (0.0-7.3) 10/12/18 05:10 Eos % (Auto) 4.2 % (0.0-4.3) 10/12/18 05:10 Baso % (Auto) 0.7 % (0.0-1.8) 10/12/18 05:10 Lymph # 0.6 K/mm3 (1.2-5.4) L 10/12/18 05:10 [place] # 0.2 K/mm3 (0.0-0.8) 10/12/18 05:10 Eos # 0.1 K/mm3 (0.0-0.4) 10/12/18 05:10 Baso # 0.0 K/mm3 (0.0-0.1) 10/12/18 05:10 Seg Neutrophils % 70.6 % (40.0-70.0) H 10/12/18 05:10 Seg Neutrophils # 2.4 K/mm3 (1.8-7.7) 10/12/18 05:10 PT 13.0 Sec. (12.2-14.9) 10/11/18 20:25 INR 0.93 (0.87-1.13) 10/11/18 20:25 APTT 53.2 Sec. (24.2-36.6) H 10/11/18 20:25 Sodium 144 mmol/L (137-145) 10/12/18 05:10 Potassium 4.7 mmol/L (3.6-5.0) 10/12/18 05:10 Chloride 112.6 mmol/L (98-107) H 10/12/18 05:10 Carbon Dioxide 23 mmol/L (22-30) 10/12/18 05:10 Anion Gap 13 mmol/L 10/12/18 05:10 BUN 24 mg/dL (9-20) H 10/12/18 05:10 Creatinine 1.6 mg/dL (0.8-1.5) H 10/12/18 05:10 Estimated GFR 58 ml/min 10/12/18 05:10 BUN/Creatinine Ratio 15 % 10/12/18 05:10 Glucose 106 mg/dL (75-100) H 10/12/18 05:10 POC Glucose 184 (70-105) H 10/10/18 13:23 Calcium 8.6 mg/dL (8.4-10.2) 10/12/18 05:10 Phosphorus 3.90 mg/dL (2.5-4.5) 10/12/18 05:10 Magnesium 1.50 mg/dL (1.7-2.3) L 10/12/18 05:10 Total Bilirubin 0.20 mg/dL (0.1-1.2) 10/12/18 05:10 AST 19 units/L (5-40) 10/12/18 05:10 ALT 27 units/L (7-56) 10/12/18 05:10 Alkaline Phosphatase 124 units/L (35-129) 10/12/18 05:10 Ammonia < 10.0 umol/L (25-60) L 10/11/18 16:55 Troponin T < 0.010 ng/mL (0.00-0.029) 10/10/18 17:41 Total Protein 6.2 g/dL (6.3-8.2) L 10/12/18 05:10 Albumin 2.7 g/dL (3.9-5) L 10/12/18 05:10 Albumin/Globulin Ratio 0.8 % 10/12/18 05:10 TSH 15.800 mlU/mL (0.270-4.200) H 10/12/18 05:30 Free T4 0.78 ng/dL (0.76-1.46) 10/12/18 05:30 Urine Color Yellow (Yellow) 10/11/18 11:05 Urine Turbidity Clear (Clear) 10/11/18 11:05 Urine pH 5.0 (5.0-7.0) 10/11/18 11:05 Ur Specific Colon 1.038 (1.003-1.030) H 10/11/18 11:05 Urine Protein <15 mg/dl mg/dL (Negative) 10/11/18 11:05 Urine Glucose (UA) Neg mg/dL (Negative) 10/11/18 11:05 Urine Ketones Neg mg/dL (Negative) 10/11/18 11:05 Urine Blood Neg (Negative) 10/11/18 11:05 Urine Nitrite Neg (Negative) 10/11/18 11:05 Urine Bilirubin Neg (Negative) 10/11/18 11:05 Urine Urobilinogen 4.0 mg/dL (<2.0) 10/11/18 11:05 Ur Leukocyte Esterase Neg (Negative) 10/11/18 11:05 Urine WBC (Auto) 1.0 /HPF (0.0-6.0) 10/11/18 11:05 Urine RBC (Auto) 1.0 /HPF (0.0-6.0) 10/11/18 11:05 U Epithel Cells (Auto) < 1.0 /HPF (0-13.0) 10/11/18 11:05 CSF Appearance Clear 10/11/18 09:52 CSF Color Colorless 10/11/18 09:52 CSF WBC 1 /mm3 (1-10) 10/11/18 09:52 CSF RBC 0 /mm3 (0-0) 10/11/18 09:52 CSF Lymphocytes % 100 % (40-80) 10/11/18 09:52 CSF Pathologist Review C 10/11/18 09:52 CSF Glucose 68 mg/dL 10/11/18 09:52 CSF Total Protein 45 mg/dL 10/11/18 09:52 Urine Opiates Screen Presumptive negative 10/11/18 11:05 Urine Methadone Screen Presumptive negative 10/11/18 11:05 Ur Barbiturates Screen Presumptive negative 10/11/18 11:05 Ur Phencyclidine Scrn Presumptive negative 10/11/18 11:05 Ur Amphetamines Screen Presumptive negative 10/11/18 11:05 U Benzodiazepines Scrn Presumptive negative 10/11/18 11:05 Urine Cocaine Screen Presumptive negative 10/11/18 11:05 U Marijuana (THC) Screen Presumptive negative 10/11/18 11:05 Drugs of Abuse Note Disclamer 10/11/18 11:05 Active Medications - Current Medications Current Medications: Generic Name Dose Route Start Last Admin Trade Name Freq PRN Reason Stop Dose Admin Acetaminophen 650 mg 10/10/18 19:14 Tylenol PO Q4H PRN Pain MILD(1-3)/Fever >100.5/QUINN Albuterol 2.5 mg 10/10/18 19:14 Proventil IH Q4HRT PRN Shortness Of Breath Clobetasol Propionate 1 applic 10/11/18 22:00 10/12/18 13:29 Temovate TP 1 applic BID DILIA Administration Darunavir 800 mg 10/12/18 14:00 Prezista PO QDAY DILIA Emtricitabine 200 mg 10/12/18 13:45 Emtriva PO QDAY DILIA Gabapentin 300 mg 10/10/18 22:00 10/12/18 13:28 Neurontin PO 300 mg BID DILIA Administration Dextrose 1,000 mls @ 125 mls/hr 10/11/18 12:00 10/12/18 13:28 D5w IV 125 mls/hr DIRECT DILIA Administration Ibuprofen 800 mg 10/10/18 20:00 10/12/18 13:28 Motrin PO 800 mg TID DILIA Administration Ondansetron HCl 4 mg 10/10/18 19:14 Zofran IV Q8H PRN Nausea And Vomiting Oxycodone/Acetaminophen 1 tab 10/10/18 19:14 10/12/18 13:05 Percocet 5/325 PO 1 tab Q6H PRN Administration Pain, Moderate (4-6) Pantoprazole Sodium 40 mg 10/11/18 10:00 10/12/18 13:28 Protonix PO 40 mg QDAY DILIA Administration Ritonavir 100 mg 10/12/18 14:00 Norvir PO DAILY DILIA Sodium Chloride 10 ml 10/10/18 22:00 10/12/18 13:28 Sodium Chloride Flush Syringe 10 Ml IV 10 ml BID DILIA Administration Sodium Chloride 10 ml 10/10/18 19:14 Sodium Chloride Flush Syringe 10 Ml IV PRN PRN LINE FLUSH Tenofovir Disoproxil Fumarate 300 mg 10/12/18 13:45 Viread PO QDAY DILIA Trimethoprim/Sulfamethoxazole 1 each 10/11/18 10:00 10/12/18 13:28 Bactrim Ds PO 1 each DAILY DILIA Administration Zolpidem Tartrate 10 mg 10/10/18 19:15 Ambien PO QHS PRN Insomnia
[2018-10-12] MEDS ORDERED: ATIVAN IV PRN (14:45)
[2018-10-12] MEDS ORDERED: MAGNESIUM SULFATE 2GM/50ML 2 GM/50 ML BAG IV ONE (16:05)
[2018-10-12] MEDS: VIREAD PO SCH (21:01)
[2018-10-12] MEDS: NORVIR PO SCH (21:02)
[2018-10-12] MEDS: EMTRIVA PO SCH (21:02)
[2018-10-12] MEDS: PREZISTA PO SCH (21:02)
[2018-10-13] MEDS: D5W 1,000 ML IV SCH ×2 (01:50→10:20)
[2018-10-13 06:10] LABS: Hematocrit 32.2 % (35.5-45.6); Hemoglobin 10.9 gm/dl (11.8-15.2); Mean Corpuscular HGB Conc 34 % (32-34); Mean Corpuscular Volume 93 fl (84-94); Red Blood Count 3.46 M/mm3 (3.65-5.03); Red Cell Distribution Width 17.5 % (13.2-15.2)
[2018-10-13 06:11] LABS: Platelet Count 87 K/mm3 (140-440)
[2018-10-13 06:27] LABS: Albumin 2.8 g/dL (3.9-5); Calcium 8.7 mg/dL (8.4-10.2)
[2018-10-13 07:18] LABS: Anisocytosis Few; Band Neutrophils # (Manual) 0.3 K/mm3; Macrocytosis Few; Platelet Estimate Consistent w Auto; Total Cells Counted 100
--- NOTE | 2018-10-13 09:57 | Progress Note ---
Assessment and Plan Cultures: 10/11/2018 Cryptoccocal Antigen Serum: negative 10/11/2018 Cryptoccocal Antigen CSF: negative 10/11/2018 CSF: negative Assessment: 38 y/o male with history of HIV infection follows with Dr Kaiser at [facility] since Jun 2018, last CD4=7, [id number] on 09/20/2018, previously non-compliance with meds, currently on Biktarvy, Bactrim and azithromycin, without missing any dose; admitted on 10/10/2018 due to 3-week history of worsening confusion, generalized weakness, repetitive speech and poor memory. Also noted with decreased oral intake, drooling, gait instability. family reports an episode of "bloody diarrhea". -Acute on chronic encephalopathy: worsening; patient has been seen at Dr Kaiser's office for AMS 3 weeks ago. He had a recent CT head which was negative. Also, he was checked for RPR which was negative and Toxoplasma IgG positive. Repeat CT head showed no intracraneal lesions or hemorrhage. Mild decreased bilateral periventricular density with white matter without mass effect c/w mild atrophic gliosis, patchy ethmoidal mucosal. Patient was re-started on ART Biktarvy in Jun 2018. 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 No fever. Denies headaches or focal neurologic signs. DDx toxoplasma encephalitis, BARREL RAISER lymphoma, mycobacterial infection, cryptococcosis, less likely multifocal leukoencephalopathy. 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 Recent TB test at [facility] office negative. CSF wbc 1, Lymph 100%, glucose 68, protein 55 which is not c/w meningitis. -Bloody stools ? colitis due to CMV vs other etiology. CT abdomen shows Mild focal wall thickening of the distal sigmoid colon and rectum may represent a mild colitis or enterocolitis. Moderate stool proximally. Mild to moderate fluid distention of the small bowel loops could could be related to enterocolitis or constipation. No perforation. No abscess. No obstructive pattern -Pancytopenia: from HIV versus opportuistic ifnections -Chronic generalized eczema -History of MSSA cutaneous abscesses with MSSA bacteremia -History of right femoral zoster. -New onset Seizure - observed at [facility] 10/12/18. Neurology consult placed for s eizures and EEG. Brain MRI show cortical atrophy which is more pronounced in the frontal and temporal lobes and consistent with frontotemporal dementia. Moderate nonspecific white matter disease. Recommendations: - f/u CSF VDRL, HSV-PCR, CMV-PCR, EBV PCR, LINDA virus, and culture - f/u AFB-blood cultures - f/u stool for O+P, giardia/cryptosporidium and culture - continue Bactrim 1 tab qday and azithromycin 1200 mg po qweek JEREMIE [facility] M: [phone] O:[phone] Subjective Date of service: 10/13/18 Interval history: Patient seen and examined. Sitting up in the bed. Follows simple commands , mild agitation. Objective - Exam Narrative Exam: General appearance: Alert. Awake. no acute distress. Mild agitation Eyes: anicteric sclerae, moist conjunctivae; no lid-lag; PERRLA HENT: Atraumatic; oropharynx clear Neck: Trachea midline; supple, no thyromegaly or lymphadenopathy Lungs: CTA, +brian surg scars in thorax CV: RRR Abdomen: Soft, non-tender; no masses or hepatosplenomegaly Extremities: No peripheral edema or extremity lymphadenopathy Skin: generalized scaly rash over face, torso, legs Psych: affect : mild agitation Neuro: follows commands, alert, oriented - Constitutional Vitals: Vital Signs Temp Pulse Resp BP Pulse Ox 98.2 F 60 18 107/61 98 10/13/18 00:03 10/13/18 08:45 10/13/18 08:45 10/13/18 08:45 10/13/18 08:45 Temperature -Last 24 Hours Temperature 98.2 F Temperature 98.2 F - Labs CBC & Chem 7: 10/13/18 05:31 10/13/18 05:31 Labs: Abnormal lab results 10/12/18 10/13/18 10/13/18 Range/Units 05:30 05:31 05:31 WBC 2.9 L (4.5-11.0) K/mm3 RBC 3.46 L (3.65-5.03) M/mm3 Hgb 10.9 L (11.8-15.2) gm/dl Hct 32.2 L (35.5-45.6) % RDW 17.5 H (13.2-15.2) % Plt Count 87 L (140-440) K/mm3 Lymphocytes % (Manual) 11.0 L (13.4-35.0) % Nucleated RBC % 1.0 H (0.0-0.9) % Lymphocytes # (Manual) 0.3 L (1.2-5.4) K/mm3 Chloride 110.8 H (98-107) mmol/L BUN 23 H (9-20) mg/dL Creatinine 1.6 H (0.8-1.5) mg/dL Albumin 2.8 L (3.9-5) g/dL TSH 15.800 H (0.270-4.200) mlU/mL
[2018-10-13] MEDS ORDERED: ZITHROMAX PO SCH (10:00)
[2018-10-13] MEDS: EMTRIVA PO SCH (10:23)
[2018-10-13] MEDS: NEURONTIN PO SCH ×2 (10:23→22:45)
[2018-10-13] MEDS: PROTONIX PO SCH (10:23)
[2018-10-13] MEDS: PREZISTA PO SCH (10:23)
[2018-10-13] MEDS: VIREAD PO SCH (10:23)
[2018-10-13] MEDS: SODIUM CHLORIDE FLUSH SYRINGE 10 ML IV SCH ×2 (10:23→22:45)
[2018-10-13] MEDS: BACTRIM DS PO SCH (10:23)
[2018-10-13] MEDS: NORVIR PO SCH (10:23)
[2018-10-13] MEDS: TEMOVATE TP SCH ×2 (10:24→22:45)
[2018-10-13] MEDS: PERCOCET 5/325 PO PRN (10:50)
--- NOTE | 2018-10-13 13:33 | Progress Note ---
Assessment and Plan Assessment and plan: 38-year-old man with history of HIV, brought in by his daughter for altered mental status as he had repetitive speech, he was dazed. Per his daughter and he was also drooling and coughing he has had bloody diarrhea, and had a brain scan 3 weeks previously and was told that his viral load was high and his HAART regimen had just been changed --New onset seizures; seizure precautions Ativan as needed, patient just had an MRI lumbar puncture, ID following Neurology consult, EEG, supportive care. CT head without contrast 2 days ago no acute abnormality Mild atrophy and mild gliosis mild paranasal sinus disease, --Acute metabolic encephalopathy; multifactorial Neuro checks, neuro workup, neurology consult --Bradycardia; persistent, cardiology following --HIV/AIDS; management per ID --hypernatremia; significant improvement, continue current management --Hyperthyroidism; with elevated TSH Normal T4, repeat TFTs --Tobacco use; smoking cessation counseling Nicotine patch if needed --Eczema/AIDS dermatitis; --DVT prophylaxis Lovenox Closely monitor the patient and adjust management as needed Follow neurology evaluation and recommendations History Interval history: Patient seen and examined medical records reviewed No new events reported by the nursing No new episodes of seizures since yesterday Patient is sleeping easily awakens Vital signs noted Hospitalist Physical - Constitutional Vitals: Temp Pulse Resp BP Pulse Ox 98.2 F 60 18 107/61 98 10/13/18 00:03 10/13/18 10:00 10/13/18 08:45 10/13/18 08:45 10/13/18 08:45 General appearance: Present: no acute distress, well-nourished, other - EENT Eyes: Present: PERRL, EOM intact - Neck Neck: Present: supple, normal ROM - Respiratory Respiratory effort: normal Respiratory: bilateral: diminished, negative: rales, rhonchi, wheezing - Cardiovascular Rhythm: regular Heart Sounds: Present: S1 & S2 - Extremities Extremities: no ischemia, No edema - Abdominal General gastrointestinal: soft, non-tender, non-distended - Integumentary Integumentary: Present: clear, warm, rash - Psychiatric Psychiatric: other (minimally communicative) - Neurologic Neurologic: moves all extremities Results - Labs CBC & Chem 7: 10/13/18 05:31 10/13/18 05:31 Labs: Laboratory Last Values WBC 2.9 K/mm3 (4.5-11.0) L 10/13/18 05:31 RBC 3.46 M/mm3 (3.65-5.03) L 10/13/18 05:31 Hgb 10.9 gm/dl (11.8-15.2) L 10/13/18 05:31 Hct 32.2 % (35.5-45.6) L 10/13/18 05:31 MCV 93 fl (84-94) 10/13/18 05:31 MCH 31 pg (28-32) 10/13/18 05:31 MCHC 34 % (32-34) 10/13/18 05:31 RDW 17.5 % (13.2-15.2) H 10/13/18 05:31 Plt Count 87 K/mm3 (140-440) L 10/13/18 05:31 Lymph % (Auto) 17.8 % (13.4-35.0) 10/12/18 05:10 [place] % (Auto) 6.7 % (0.0-7.3) 10/12/18 05:10 Eos % (Auto) 4.2 % (0.0-4.3) 10/12/18 05:10 Baso % (Auto) 0.7 % (0.0-1.8) 10/12/18 05:10 Lymph # 0.6 K/mm3 (1.2-5.4) L 10/12/18 05:10 [place] # 0.2 K/mm3 (0.0-0.8) 10/12/18 05:10 Eos # 0.1 K/mm3 (0.0-0.4) 10/12/18 05:10 Baso # 0.0 K/mm3 (0.0-0.1) 10/12/18 05:10 Add Manual Diff Complete 10/13/18 05:31 Total Counted 100 10/13/18 05:31 Seg Neutrophils % 70.6 % (40.0-70.0) H 10/12/18 05:10 Seg Neuts % (Manual) 69.0 % (40.0-70.0) 10/13/18 05:31 Band Neutrophils % 12.0 % 10/13/18 05:31 Lymphocytes % (Manual) 11.0 % (13.4-35.0) L 10/13/18 05:31 Reactive Lymphs % (Man) 2.0 % 10/13/18 05:31 Monocytes % (Manual) 3.0 % (0.0-7.3) 10/13/18 05:31 Eosinophils % (Manual) 2.0 % (0.0-4.3) 10/13/18 05:31 Basophils % (Manual) 1.0 % (0.0-1.8) 10/13/18 05:31 Metamyelocytes % 0 % 10/13/18 05:31 Myelocytes % 0 % 10/13/18 05:31 Promyelocytes % 0 % 10/13/18 05:31 Blast Cells % 0 % 10/13/18 05:31 Nucleated RBC % 1.0 % (0.0-0.9) H 10/13/18 05:31 Seg Neutrophils # 2.4 K/mm3 (1.8-7.7) 10/12/18 05:10 Seg Neutrophils # Man 2.0 K/mm3 (1.8-7.7) 10/13/18 05:31 Band Neutrophils # 0.3 K/mm3 10/13/18 05:31 Lymphocytes # (Manual) 0.3 K/mm3 (1.2-5.4) L 10/13/18 05:31 Abs React Lymphs (Man) 0.1 K/mm3 10/13/18 05:31 Monocytes # (Manual) 0.1 K/mm3 (0.0-0.8) 10/13/18 05:31 Eosinophils # (Manual) 0.1 K/mm3 (0.0-0.4) 10/13/18 05:31 Basophils # (Manual) 0.0 K/mm3 (0.0-0.1) 10/13/18 05:31 Metamyelocytes # 0.0 K/mm3 10/13/18 05:31 Myelocytes # 0.0 K/mm3 10/13/18 05:31 Promyelocytes # 0.0 K/mm3 10/13/18 05:31 Blast Cells # 0.0 K/mm3 10/13/18 05:31 WBC Morphology Not Reportable 10/13/18 05:31 Hypersegmented Neuts Not Reportable 10/13/18 05:31 Hyposegmented Neuts Not Reportable 10/13/18 05:31 Hypogranular Neuts Not Reportable 10/13/18 05:31 Smudge Cells Not Reportable 10/13/18 05:31 Toxic Granulation Not Reportable 10/13/18 05:31 Toxic Vacuolation Not Reportable 10/13/18 05:31 Dohle Bodies Not Reportable 10/13/18 05:31 Pelger-Huet Anomaly Not Reportable 10/13/18 05:31 Ivonne Rods Not Reportable 10/13/18 05:31 Platelet Estimate Consistent w auto 10/13/18 05:31 Clumped Platelets Not Reportable 10/13/18 05:31 Plt Clumps, EDTA Not Reportable 10/13/18 05:31 Large Platelets Not Reportable 10/13/18 05:31 Giant Platelets Not Reportable 10/13/18 05:31 Platelet Satelliting Not Reportable 10/13/18 05:31 Plt Morphology Comment Not Reportable 10/13/18 05:31 RBC Morphology Not Reportable 10/13/18 05:31 Dimorphic RBCs Not Reportable 10/13/18 05:31 Polychromasia Not Reportable 10/13/18 05:31 Hypochromasia Not Reportable 10/13/18 05:31 Poikilocytosis Not Reportable 10/13/18 05:31 Anisocytosis Few 10/13/18 05:31 Microcytosis Not Reportable 10/13/18 05:31 Macrocytosis Few 10/13/18 05:31 Spherocytes Not Reportable 10/13/18 05:31 Pappenheimer Bodies Not Reportable 10/13/18 05:31 Sickle Cells Not Reportable 10/13/18 05:31 Target Cells Not Reportable 10/13/18 05:31 Tear Drop Cells Not Reportable 10/13/18 05:31 Ovalocytes Not Reportable 10/13/18 05:31 Helmet Cells Not Reportable 10/13/18 05:31 [place] Bodies Not Reportable 10/13/18 05:31 [place] Rings Not Reportable 10/13/18 05:31 Carla Cells Not Reportable 10/13/18 05:31 Bite Cells Not Reportable 10/13/18 05:31 Crenated Cell Not Reportable 10/13/18 05:31 Elliptocytes Not Reportable 10/13/18 05:31 Acanthocytes (Spur) Not Reportable 10/13/18 05:31 Rouleaux Not Reportable 10/13/18 05:31 Hemoglobin C Crystals Not Reportable 10/13/18 05:31 Schistocytes Not Reportable 10/13/18 05:31 Malaria parasites Not Reportable 10/13/18 05:31 Michael Bodies Not Reportable 10/13/18 05:31 Hem Pathologist Commnt No 10/13/18 05:31 PT 13.0 Sec. (12.2-14.9) 10/11/18 20:25 INR 0.93 (0.87-1.13) 10/11/18 20:25 APTT 53.2 Sec. (24.2-36.6) H 10/11/18 20:25 Sodium 140 mmol/L (137-145) 10/13/18 05:31 Potassium 4.9 mmol/L (3.6-5.0) 10/13/18 05:31 Chloride 110.8 mmol/L (98-107) H 10/13/18 05:31 Carbon Dioxide 23 mmol/L (22-30) 10/13/18 05:31 Anion Gap 11 mmol/L 10/13/18 05:31 BUN 23 mg/dL (9-20) H 10/13/18 05:31 Creatinine 1.6 mg/dL (0.8-1.5) H 10/13/18 05:31 Estimated GFR 58 ml/min 10/13/18 05:31 BUN/Creatinine Ratio 14 % 10/13/18 05:31 Glucose 81 mg/dL (75-100) 10/13/18 05:31 POC Glucose 184 (70-105) H 10/10/18 13:23 Calcium 8.7 mg/dL (8.4-10.2) 10/13/18 05:31 Phosphorus 3.30 mg/dL (2.5-4.5) 10/13/18 05:31 Magnesium 2.20 mg/dL (1.7-2.3) 10/13/18 05:31 Total Bilirubin 0.20 mg/dL (0.1-1.2) 10/13/18 05:31 AST 22 units/L (5-40) 10/13/18 05:31 ALT 27 units/L (7-56) 10/13/18 05:31 Alkaline Phosphatase 115 units/L (35-129) 10/13/18 05:31 Ammonia < 10.0 umol/L (25-60) L 10/11/18 16:55 Troponin T < 0.010 ng/mL (0.00-0.029) 10/10/18 17:41 Total Protein 6.5 g/dL (6.3-8.2) 10/13/18 05:31 Albumin 2.8 g/dL (3.9-5) L 10/13/18 05:31 Albumin/Globulin Ratio 0.8 % 10/13/18 05:31 TSH 15.800 mlU/mL (0.270-4.200) H 10/12/18 05:30 Free T4 0.78 ng/dL (0.76-1.46) 10/12/18 05:30 Thyroxine (T4) 4.8 ug/dL (4.0-12.0) 10/12/18 16:30 Urine Color Yellow (Yellow) 10/11/18 11:05 Urine Turbidity Clear (Clear) 10/11/18 11:05 Urine pH 5.0 (5.0-7.0) 10/11/18 11:05 Ur Specific [place] 1.038 (1.003-1.030) H 10/11/18 11:05 Urine Protein <15 mg/dl mg/dL (Negative) 10/11/18 11:05 Urine Glucose (UA) Neg mg/dL (Negative) 10/11/18 11:05 Urine Ketones Neg mg/dL (Negative) 10/11/18 11:05 Urine Blood Neg (Negative) 10/11/18 11:05 Urine Nitrite Neg (Negative) 10/11/18 11:05 Urine Bilirubin Neg (Negative) 10/11/18 11:05 Urine Urobilinogen 4.0 mg/dL (<2.0) 10/11/18 11:05 Ur Leukocyte Esterase Neg (Negative) 10/11/18 11:05 Urine WBC (Auto) 1.0 /HPF (0.0-6.0) 10/11/18 11:05 Urine RBC (Auto) 1.0 /HPF (0.0-6.0) 10/11/18 11:05 U Epithel Cells (Auto) < 1.0 /HPF (0-13.0) 10/11/18 11:05 CSF Appearance Clear 10/11/18 09:52 CSF Color Colorless 10/11/18 09:52 CSF WBC 1 /mm3 (1-10) 10/11/18 09:52 CSF RBC 0 /mm3 (0-0) 10/11/18 09:52 CSF Lymphocytes % 100 % (40-80) 10/11/18 09:52 CSF Pathologist Review C 10/11/18 09:52 CSF Glucose 68 mg/dL 10/11/18 09:52 CSF Total Protein 45 mg/dL 10/11/18 09:52 Urine Opiates Screen Presumptive negative 10/11/18 11:05 Urine Methadone Screen Presumptive negative 10/11/18 11:05 Ur Barbiturates Screen Presumptive negative 10/11/18 11:05 Ur Phencyclidine Scrn Presumptive negative 10/11/18 11:05 Ur Amphetamines Screen Presumptive negative 10/11/18 11:05 U Benzodiazepines Scrn Presumptive negative 10/11/18 11:05 Urine Cocaine Screen Presumptive negative 10/11/18 11:05 U Marijuana (THC) Screen Presumptive negative 10/11/18 11:05 Drugs of Abuse Note Disclamer 10/11/18 11:05 Active Medications - Current Medications Current Medications: Generic Name Dose Route Start Last Admin Trade Name Freq PRN Reason Stop Dose Admin Acetaminophen 650 mg 10/10/18 19:14 Tylenol PO Q4H PRN Pain MILD(1-3)/Fever >100.5/QUINN Albuterol 2.5 mg 10/10/18 19:14 Proventil IH Q4HRT PRN Shortness Of Breath Azithromycin 1,200 mg 10/13/18 10:00 10/13/18 10:29 Zithromax PO 1,200 mg We DILIA Administration Clobetasol Propionate 1 applic 10/11/18 22:00 10/13/18 10:24 Temovate TP 1 applic BID DILIA Administration Darunavir 800 mg 10/12/18 14:00 10/13/18 10:23 Prezista PO 800 mg QDAY DILIA Administration Emtricitabine 200 mg 10/12/18 13:45 10/13/18 10:23 Emtriva PO 200 mg QDAY DILIA Administration Gabapentin 300 mg 10/10/18 22:00 10/13/18 10:23 Neurontin PO 300 mg BID DILIA Administration Dextrose 1,000 mls @ 125 mls/hr 10/11/18 12:00 10/13/18 10:20 D5w IV 125 mls/hr DIRECT DILIA Administration Levothyroxine Sodium 112 mcg 10/14/18 06:00 Synthroid PO DAILY@0600 DILIA Levothyroxine Sodium 25 mcg 10/14/18 06:00 Synthroid PO DAILY@0600 [facility] Lorazepam 2 mg 10/12/18 14:45 Ativan IV Q1H PRN Seizures Ondansetron HCl 4 mg 10/10/18 19:14 Zofran IV Q8H PRN Nausea And Vomiting Oxycodone/Acetaminophen 1 tab 10/10/18 19:14 10/13/18 10:50 Percocet 5/325 PO 1 tab Q6H PRN Administration Pain, Moderate (4-6) Pantoprazole Sodium 40 mg 10/11/18 10:00 10/13/18 10:23 Protonix PO 40 mg QDAY DILIA Administration Ritonavir 100 mg 10/12/18 14:00 10/13/18 10:23 Norvir PO 100 mg DAILY DILIA Administration Sodium Chloride 10 ml 10/10/18 22:00 10/13/18 10:23 Sodium Chloride Flush Syringe 10 Ml IV 10 ml BID DILIA Administration Sodium Chloride 10 ml 10/10/18 19:14 Sodium Chloride Flush Syringe 10 Ml IV PRN PRN LINE FLUSH Tenofovir Disoproxil Fumarate 300 mg 10/12/18 13:45 10/13/18 10:23 Viread PO 300 mg QDAY DILIA Administration Trimethoprim/Sulfamethoxazole 1 each 10/11/18 10:00 10/13/18 10:23 Bactrim Ds PO 1 each DAILY DILIA Administration Zolpidem Tartrate 10 mg 10/10/18 19:15 Ambien PO QHS PRN Insomnia
--- NOTE | 2018-10-13 14:20 | Cat Scan Report ---
PROCEDURE: CT ABDOMEN PELVIS WO CON TECHNIQUE: Computerized axial tomography of the abdomen and pelvis was performed without intravenou s contrast. This study is performed without intravascular contrast material and its sensitivity for a bdominal and pelvic pathology, including neoplasms, inflammation, abscess, free fluid, thrombosis, ar terial dissection and infarction, is reduced compared with a contrast enhanced study. CT DOSE LENGTH PRODUCT: 777.2 mGy-cm. HISTORY: colitis COMPARISONS: None currently available. FINDINGS: Abdomen: Trace left pleural effusion. Focal infiltrate or subsegmental atelectasis at the left lung base. Mild discoid subsegmental atelectasis at the right lung base. Partially imaged cardiomegaly. No pericardial effusion. Fluid in the distal nondistended esophagus. Findings could be related to reflux. Liver, gallbladder, stomach, spleen, pancreas, and adrenals are unremarkable. Kidneys: No nephroureteral stones. Mild hydronephrosis in both kidneys extending down to the bladder. No perinephric stranding. No aneurysm. No significant atherosclerotic disease. IVC is unremarkable. There is no periaortic or retroperitoneal adenopathy or mass. Focal mild wall thickening of the distal sigmoid colon and rectum with minimal stranding. No perforat ion or abscess. Moderate stool throughout the remainder of the colon without wall thickening or stran ding. Terminal ileum is unremarkable. The appendix is not identified. There are no pericecal inflammatory changes. Mild to moderate fluid distended small bowel loops without significant air-fluid levels. There may be some mild wall thickening. No obstructive pattern. No free air. No free fluid. Mesentery is unremarkable. Pelvis: Limited CT images of the prostate are unremarkable. Bladder: Unremarkable. There is no pelvic mass or adenopathy. Inguinal regions are unremarkable. Bones: No suspicious osseous lesions on this limited examination of the skeleton. Metastatic disease better evaluated with bone scan. Degenerative changes are in the spine. IMPRESSION: * Trace left pleural effusion with adjacent focal subsegmental atelectasis or infiltrate. * Cardiomegaly. * Possible gastroesophageal reflux. * Suspect mild hydronephrosis extending down to the bladder. Findings could relate to mild reflux. N o nephroureteral stone. * Mild focal wall thickening of the distal sigmoid colon and rectum may represent a mild colitis or enterocolitis. Moderate stool proximally. Mild to moderate fluid distention of the small bowel loops could could be related to enterocolitis or constipation. No perforation. No abscess. No obstructive p attern. This document is electronically signed by Qasim Rodriguez MD., October 13 2018 02:18:00 PM ET
--- NOTE | 2018-10-13 17:40 | Consultation ---
History of Present Illness Consult date: 10/13/18 Chief complaint: new onset seizure, HIV encephalopathy History of present illness: This is a 38 YO M wh o presented to the ED with new onset seizure and not acting himself. Pt is unable to give history so all is obtained from the chart, no fa dudley at bedside. Pt with HIV, apparently now on HAART therapy but not for very long. Recently told he had a high viral load. Pt had an MRI Brain that showed atrophy but no acute findings. No further seizures noted since pt has been hospitalized. On my arrival he is awake and alert, can anwer questions and follows commands but can not give any history. Past History Past Medical History: HIV/AIDS Past Surgical History: Other (Back surgery) Social history: smoking Family history: no significant family history (reviewed) Medications and Allergies Allergies Allergy/AdvReac Type Severity Reaction Status Date / Time No Known Allergies Allergy Verified 07/06/18 10:11 Home Medications Medication Instructions Recorded Confirmed Last Taken Type Sulfamethoxazole/Trimethoprim 1 each PO DAILY #30 tablet 02/16/17 10/12/18 Unknown Rx [Bactrim DS TAB] Ammonium Lactate [Lac-Hydrin 1 applicatio TP BID 10/12/18 10/12/18 Unknown History Lotion] Azithromycin [Zithromax TAB] 600 mg PO QDAY 10/12/18 10/12/18 Unknown History Bictegrav/Emtricit/Tenofov Ala 1 tab PO QDAY 10/12/18 10/12/18 Unknown History [Biktarvy 50-200-25 mg (Nf)] Ergocalciferol (Vitamin D2) 50,000 unit PO QDAY 10/12/18 10/12/18 Unknown History [Drisdol] Fluticasone [Flonase] 1 spray NS QDAY 10/12/18 10/12/18 Unknown History Meloxicam [Mobic] 7.5 mg PO QDAY 10/12/18 10/12/18 Unknown History Miconazole 2% [Monistat-Derm] 1 applicatio TP BID 10/12/18 10/12/18 Unknown History Active Meds: Active Medications Acetaminophen (Tylenol) 650 mg PO Q4H PRN PRN Reason: Pain MILD(1-3)/Fever >100.5/QUINN Albuterol (Proventil) 2.5 mg IH Q4HRT PRN PRN Reason: Shortness Of Breath Azithromycin (Zithromax) 1,200 mg PO We [facility] Last Admin: 10/13/18 10:29 Dose: 1,200 mg Documented by: Clobetasol Propionate (Temovate) 1 applic TP BID [facility] Last Admin: 10/13/18 10:24 Dose: 1 applic Documented by: Darunavir (Prezista) 800 mg PO QDAY [facility] Last Admin: 10/13/18 10:23 Dose: 800 mg Documented by: Emtricitabine (Emtriva) 200 mg PO QDAY [facility] Last Admin: 10/13/18 10:23 Dose: 200 mg Documented by: Gabapentin (Neurontin) 300 mg PO BID [facility] Last Admin: 10/13/18 10:23 Dose: 300 mg Documented by: Dextrose (D5w) 1,000 mls @ 125 mls/hr IV DIRECT [facility] Last Admin: 10/13/18 10:20 Dose: 125 mls/hr Documented by: Levothyroxine Sodium (Synthroid) 112 mcg PO DAILY@0600 [facility] Levothyroxine Sodium (Synthroid) 25 mcg PO DAILY@0600 [facility] Lorazepam (Ativan) 2 mg IV Q1H PRN PRN Reason: Seizures Ondansetron HCl (Zofran) 4 mg IV Q8H PRN PRN Reason: Nausea And Vomiting Oxycodone/Acetaminophen (Percocet 5/325) 1 tab PO Q6H PRN PRN Reason: Pain, Moderate (4-6) Last Admin: 10/13/18 10:50 Dose: 1 tab Documented by: Pantoprazole Sodium (Protonix) 40 mg PO QDAY [facility] Last Admin: 10/13/18 10:23 Dose: 40 mg Documented by: Ritonavir (Norvir) 100 mg PO DAILY [facility] Last Admin: 10/13/18 10:23 Dose: 100 mg Documented by: Sodium Chloride (Sodium Chloride Flush Syringe 10 Ml) 10 ml IV BID [facility] Last Admin: 10/13/18 10:23 Dose: 10 ml Documented by: Sodium Chloride (Sodium Chloride Flush Syringe 10 Ml) 10 ml IV PRN PRN PRN Reason: LINE FLUSH Tenofovir Disoproxil Fumarate (Viread) 300 mg PO QDAY [facility] Last Admin: 10/13/18 10:23 Dose: 300 mg Documented by: Trimethoprim/Sulfamethoxazole (Bactrim Ds) 1 each PO DAILY DILIA Last Admin: 10/13/18 10:23 Dose: 1 each Documented by: Zolpidem Tartrate (Ambien) 10 mg PO QHS PRN PRN Reason: Insomnia Review of Systems ROS unobtainable: due to mental status Physical Examination - Vital Signs Vital Signs: Vital Signs Temp Pulse Resp BP 98.4 F 42 L 18 122/81 10/10/18 13:39 10/10/18 13:39 10/10/18 13:39 10/10/18 13:39 - Constitutional General appearance: comfortable - EENT EENT: Present: PERRL - Respiratory Respiratory: Present: lungs clear - Cardiovascular Cardiovascular: Present: regular rate - Gastrointestinal Gastrointestinal: Present: normoactive bowel sounds - Neurologic Cranial nerve examination: PERRL, EOMI, V1/V2/V3 grossly intact, face symmetric Speech examination: intact Detailed motor examination: grossly full strength in Detailed sensory examination: light touch Reflexes: 1+: ankle, bicep, knee, tricep Results - Laboratory Findings CBC and BMP: 10/13/18 05:31 10/13/18 05:31 Abnormal Lab Findings: Abnormal Labs 10/10/18 10/10/18 10/10/18 13:23 14:03 14:03 WBC 2.8 L RBC Hgb 11.5 L Hct 33.8 L RDW 16.7 H Plt Count 122 L [place] % (Auto) 8.2 H Eos % (Auto) 7.1 H Lymph # 0.5 L Seg Neutrophils % Lymphocytes % (Manual) Nucleated RBC % Lymphocytes # (Manual) APTT Sodium 148 H Chloride 115.1 H BUN 22 H Creatinine Glucose 112 H POC Glucose 184 H Magnesium Ammonia Total Protein Albumin TSH Ur Specific [place] 10/11/18 10/11/18 10/11/18 05:17 11:05 16:55 WBC RBC Hgb Hct RDW Plt Count [place] % (Auto) Eos % (Auto) Lymph # Seg Neutrophils % Lymphocytes % (Manual) Nucleated RBC % Lymphocytes # (Manual) APTT Sodium 147 H Chloride 116.2 H BUN 23 H Creatinine Glucose 66 L POC Glucose Magnesium Ammonia < 10.0 L Total Protein Albumin TSH Ur Specific [place] 1.038 H 10/11/18 10/11/18 10/12/18 20:25 20:25 05:10 WBC 3.4 L RBC 3.50 L Hgb 11.0 L Hct 32.6 L RDW 17.5 H Plt Count 102 L 98 L [place] % (Auto) Eos % (Auto) Lymph # 0.6 L Seg Neutrophils % 70.6 H Lymphocytes % (Manual) Nucleated RBC % Lymphocytes # (Manual) APTT 53.2 H Sodium Chloride BUN Creatinine Glucose POC Glucose Magnesium Ammonia Total Protein Albumin TSH Ur Specific [place] 10/12/18 10/12/18 10/13/18 05:10 05:30 05:31 WBC 2.9 L RBC 3.46 L Hgb 10.9 L Hct 32.2 L RDW 17.5 H Plt Count 87 L [place] % (Auto) Eos % (Auto) Lymph # Seg Neutrophils % Lymphocytes % (Manual) 11.0 L Nucleated RBC % 1.0 H Lymphocytes # (Manual) 0.3 L APTT Sodium Chloride 112.6 H BUN 24 H Creatinine 1.6 H Glucose 106 H POC Glucose Magnesium 1.50 L Ammonia Total Protein 6.2 L Albumin 2.7 L TSH 15.800 H Ur Specific [place] 10/13/18 05:31 WBC RBC Hgb Hct RDW Plt Count [place] % (Auto) Eos % (Auto) Lymph # Seg Neutrophils % Lymphocytes % (Manual) Nucleated RBC % Lymphocytes # (Manual) APTT Sodium Chloride 110.8 H BUN 23 H Creatinine 1.6 H Glucose POC Glucose Magnesium Ammonia Total Protein Albumin 2.8 L TSH Ur Specific [place] - Diagnostic Findings Additional findings: MRI Brain atrophy, nothing acute. Done with and without carola CSF unremarkable Assessment and Plan This is a 38 YO M with new onset seizure and HIV encephalopathy Recommend: EEG Would go ahead and start Keppra in this patient as his seizure threshold is lowered Continue aggressive treatment of his HIV and any other medical issues as you are doing Doubt pt is having non convulsive seizures based on today's exam but is possible, if so increase Keppra to 1000 mg BID Guarded prognosis No family at bedside
[2018-10-13] MEDS: KEPPRA PO SCH (22:45)
[2018-10-14] MEDS ORDERED: SYNTHROID 112 MCG, SYNTHROID 25 MCG PO SCH (06:00)
[2018-10-14] MEDS: SYNTHROID PO SCH ×2 (06:12)
[2018-10-14] MEDS: D5W 1,000 ML IV SCH (09:17)
--- NOTE | 2018-10-14 11:03 | Progress Note ---
Assessment and Plan Cultures: 10/11/2018 Cryptoccocal Antigen Serum: negative 10/11/2018 Cryptoccocal Antigen CSF: negative 10/11/2018 CSF: negative Assessment: 38 y/o male with history of HIV infection follows with Dr Kaiser at [facility] since Jun 2018, last CD4=7, [id number] on 09/20/2018, previously non-compliance with meds, currently on Biktarvy, Bactrim and azithromycin, without missing any dose; admitted on 10/10/2018 due to 3-week history of worsening confusion, generalized weakness, repetitive speech and poor memory. Also noted with decreased oral intake, drooling, gait instability. family reports an episode of "bloody diarrhea". -Acute on chronic encephalopathy: worsening; patient has been seen at Dr Kaiser's office for AMS 3 weeks ago. He had a recent CT head which was negative. Also, he was checked for RPR which was negative and Toxoplasma IgG positive. Repeat CT head showed no intracraneal lesions or hemorrhage. Mild decreased bilateral periventricular density with white matter without mass effect c/w mild atrophic gliosis, patchy ethmoidal mucosal. Patient was re-started on ART Biktarvy in Jun 2018. 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 No fever. Denies headaches or focal neurologic signs. DDx toxoplasma encephalitis, [employer] lymphoma, mycobacterial infection, cryptococcosis, less likely multifocal leukoencephalopathy. 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 Recent TB test at [facility] office negative. CSF wbc 1, Lymph 100%, glucose 68, protein 55 which is not c/w meningitis. -Bloody stools- Resolved. colitis due to CMV vs other etiology. CT abdomen shows Mild focal wall thickening of the distal sigmoid colon and rectum may represent a mild colitis or enterocolitis. Moderate stool proximally. Mild to moderate fluid distention of the small bowel loops could could be related to enterocolitis or constipation. No perforation. No abscess. No obstructive pattern -Pancytopenia: from HIV versus opportuistic ifnections -Chronic generalized eczema - worsening. Will start Prednisone.with taper 2-3 weeks. -History of MSSA cutaneous abscesses with MSSA bacteremia -History of right femoral zoster. -New onset Seizure - observed at bedside 10/12/18. Neurology consult placed for seizures and EEG. Brain MRI show cortical atrophy which is more pronounced in the frontal and temporal lobes and consistent with frontotemporal dementia. Moderate nonspecific white matter disease. Recommendations: - f/u CSF VDRL, HSV-PCR, CMV-PCR, EBV PCR, LINDA virus, and culture - f/u AFB-blood cultures - f/u stool for O+P, giardia/cryptosporidium and culture- unable to collect sample, bloody stools resolved per nursing - continue Bactrim 1 tab qday and azithromycin 1200 mg po qweek -continue Emtriva, Darunavir, Ritonavir and Tenofovir - Biktarvy not on hospital formulary -Start Prednisone 40 mg PO BID with taper 2-3 weeks [facility] M: [phone] O:[phone] Subjective Date of service: 10/14/18 Interval history: Patient seen and examined. Sitting up in the bed. Follows simple commands , mild agitation. Objective - Exam Narrative Exam: General appearance: Alert. Awake. no acute distress. Mild agitation Eyes: anicteric sclerae, moist conjunctivae; no lid-lag; PERRLA HENT: Atraumatic; oropharynx clear Neck: Trachea midline; supple, no thyromegaly or lymphadenopathy Lungs: CTA, +brian surg scars in thorax CV: RRR Abdomen: Soft, non-tender; no masses or hepatosplenomegaly Extremities: No peripheral edema or extremity lymphadenopathy Skin: generalized scaly rash over face, torso, legs worsening Psych: affect : mild agitation Neuro: follows commands, alert, oriented - Constitutional Vitals: Vital Signs Temp Pulse Resp BP Pulse Ox 97.6 F 63 18 115/71 100 10/14/18 05:52 10/14/18 05:52 10/14/18 05:52 10/14/18 05:52 10/14/18 05:52 Temperature -Last 24 Hours Temperature 97.6 F Temperature 97.8 F Temperature 94.0 F - Labs CBC & Chem 7: 10/13/18 05:31 10/13/18 05:31
[2018-10-14] MEDS: PROTONIX PO SCH (11:05)
[2018-10-14] MEDS: NEURONTIN PO SCH ×2 (11:05→23:04)
[2018-10-14] MEDS: VIREAD PO SCH (11:06)
[2018-10-14] MEDS: PREZISTA PO SCH (11:06)
[2018-10-14] MEDS: BACTRIM DS PO SCH (11:07)
[2018-10-14] MEDS: NORVIR PO SCH (11:07)
[2018-10-14] MEDS: KEPPRA PO SCH ×2 (11:08→23:04)
[2018-10-14] MEDS: EMTRIVA PO SCH (11:08)
[2018-10-14] MEDS: TEMOVATE TP SCH ×2 (11:08→23:05)
--- NOTE | 2018-10-14 11:38 | Progress Note ---
Assessment and Plan Assessment and plan: 38-year-old man with history of HIV, brought in by his daughter for altered mental status as he had repetitive speech, he was dazed. Per his daughter and he was also drooling and coughing he has had bloody diarrhea, and had a brain scan 3 weeks previously and was told that his viral load was high and his HAART regimen had just been changed --New onset seizures; seizure precautions Ativan as needed, patient just had an MRI lumbar puncture, ID following Neurology consult, EEG, supportive care. CT head without contrast 2 days ago no acute abnormality Mild atrophy and mild gliosis mild paranasal sinus disease, --Acute metabolic encephalopathy; multifactorial Neuro checks, neuro workup, neurology consult --Bradycardia; persistent, cardiology following --HIV/AIDS; management per ID --hypernatremia; significant improvement, continue current management --PATRICIO : Due to vasomotor nephropathy Gentle hydration, monitor renal function and avoid nephrotoxins --Hyperthyroidism; with elevated TSH Normal T4, repeat TFTs --Tobacco use; smoking cessation counseling Nicotine patch if needed --Eczema/AIDS dermatitis; --DVT prophylaxis Lovenox Closely monitor the patient and adjust management as needed Follow neurology evaluation and recommendations History Interval history: Patient seen and examined medical records reviewed Patient is chronically ill-looking cachectic Complains of generalized weakness Vital signs noted Hospitalist Physical - Constitutional Vitals: Temp Pulse Resp BP Pulse Ox 97.6 F 63 18 115/71 100 10/14/18 05:52 10/14/18 05:52 10/14/18 05:52 10/14/18 05:52 10/14/18 05:52 General appearance: Present: no acute distress, well-nourished, other - EENT Eyes: Present: PERRL, EOM intact - Neck Neck: Present: supple, normal ROM - Respiratory Respiratory effort: normal Respiratory: bilateral: diminished, negative: rales, rhonchi, wheezing - Cardiovascular Rhythm: regular Heart Sounds: Present: S1 & S2 - Extremities Extremities: no ischemia, No edema - Abdominal General gastrointestinal: soft, non-tender, non-distended, normal bowel sounds - Integumentary Integumentary: Present: clear, warm - Psychiatric Psychiatric: appropriate mood/affect, cooperative - Neurologic Neurologic: CNII-XII intact, moves all extremities Results - Labs CBC & Chem 7: 10/13/18 05:31 10/13/18 05:31 Labs: Laboratory Last Values WBC 2.9 K/mm3 (4.5-11.0) L 10/13/18 05:31 RBC 3.46 M/mm3 (3.65-5.03) L 10/13/18 05:31 Hgb 10.9 gm/dl (11.8-15.2) L 10/13/18 05:31 Hct 32.2 % (35.5-45.6) L 10/13/18 05:31 MCV 93 fl (84-94) 10/13/18 05:31 MCH 31 pg (28-32) 10/13/18 05:31 MCHC 34 % (32-34) 10/13/18 05:31 RDW 17.5 % (13.2-15.2) H 10/13/18 05:31 Plt Count 87 K/mm3 (140-440) L 10/13/18 05:31 Lymph % (Auto) 17.8 % (13.4-35.0) 10/12/18 05:10 Preble % (Auto) 6.7 % (0.0-7.3) 10/12/18 05:10 Eos % (Auto) 4.2 % (0.0-4.3) 10/12/18 05:10 Baso % (Auto) 0.7 % (0.0-1.8) 10/12/18 05:10 Lymph # 0.6 K/mm3 (1.2-5.4) L 10/12/18 05:10 Pre[place] # 0.2 K/mm3 (0.0-0.8) 10/12/18 05:10 Eos # 0.1 K/mm3 (0.0-0.4) 10/12/18 05:10 Baso # 0.0 K/mm3 (0.0-0.1) 10/12/18 05:10 Add Manual Diff Complete 10/13/18 05:31 Total Counted 100 10/13/18 05:31 Seg Neutrophils % 70.6 % (40.0-70.0) H 10/12/18 05:10 Seg Neuts % (Manual) 69.0 % (40.0-70.0) 10/13/18 05:31 Band Neutrophils % 12.0 % 10/13/18 05:31 Lymphocytes % (Manual) 11.0 % (13.4-35.0) L 10/13/18 05:31 Reactive Lymphs % (Man) 2.0 % 10/13/18 05:31 Monocytes % (Manual) 3.0 % (0.0-7.3) 10/13/18 05:31 Eosinophils % (Manual) 2.0 % (0.0-4.3) 10/13/18 05:31 Basophils % (Manual) 1.0 % (0.0-1.8) 10/13/18 05:31 Metamyelocytes % 0 % 10/13/18 05:31 Myelocytes % 0 % 10/13/18 05:31 Promyelocytes % 0 % 10/13/18 05:31 Blast Cells % 0 % 10/13/18 05:31 Nucleated RBC % 1.0 % (0.0-0.9) H 10/13/18 05:31 Seg Neutrophils # 2.4 K/mm3 (1.8-7.7) 10/12/18 05:10 Seg Neutrophils # Man 2.0 K/mm3 (1.8-7.7) 10/13/18 05:31 Band Neutrophils # 0.3 K/mm3 10/13/18 05:31 Lymphocytes # (Manual) 0.3 K/mm3 (1.2-5.4) L 10/13/18 05:31 Abs React Lymphs (Man) 0.1 K/mm3 10/13/18 05:31 Monocytes # (Manual) 0.1 K/mm3 (0.0-0.8) 10/13/18 05:31 Eosinophils # (Manual) 0.1 K/mm3 (0.0-0.4) 10/13/18 05:31 Basophils # (Manual) 0.0 K/mm3 (0.0-0.1) 10/13/18 05:31 Metamyelocytes # 0.0 K/mm3 10/13/18 05:31 Myelocytes # 0.0 K/mm3 10/13/18 05:31 Promyelocytes # 0.0 K/mm3 10/13/18 05:31 Blast Cells # 0.0 K/mm3 10/13/18 05:31 WBC Morphology Not Reportable 10/13/18 05:31 Hypersegmented Neuts Not Reportable 10/13/18 05:31 Hyposegmented Neuts Not Reportable 10/13/18 05:31 Hypogranular Neuts Not Reportable 10/13/18 05:31 Smudge Cells Not Reportable 10/13/18 05:31 Toxic Granulation Not Reportable 10/13/18 05:31 Toxic Vacuolation Not Reportable 10/13/18 05:31 Dohle Bodies Not Reportable 10/13/18 05:31 Pelger-Huet Anomaly Not Reportable 10/13/18 05:31 Ivonne Rods Not Reportable 10/13/18 05:31 Platelet Estimate Consistent w auto 10/13/18 05:31 Clumped Platelets Not Reportable 10/13/18 05:31 Plt Clumps, EDTA Not Reportable 10/13/18 05:31 Large Platelets Not Reportable 10/13/18 05:31 Giant Platelets Not Reportable 10/13/18 05:31 Platelet Satelliting Not Reportable 10/13/18 05:31 Plt Morphology Comment Not Reportable 10/13/18 05:31 RBC Morphology Not Reportable 10/13/18 05:31 Dimorphic RBCs Not Reportable 10/13/18 05:31 Polychromasia Not Reportable 10/13/18 05:31 Hypochromasia Not Reportable 10/13/18 05:31 Poikilocytosis Not Reportable 10/13/18 05:31 Anisocytosis Few 10/13/18 05:31 Microcytosis Not Reportable 10/13/18 05:31 Macrocytosis Few 10/13/18 05:31 Spherocytes Not Reportable 10/13/18 05:31 Pappenheimer Bodies Not Reportable 10/13/18 05:31 Sickle Cells Not Reportable 10/13/18 05:31 Target Cells Not Reportable 10/13/18 05:31 Tear Drop Cells Not Reportable 10/13/18 05:31 Ovalocytes Not Reportable 10/13/18 05:31 Helmet Cells Not Reportable 10/13/18 05:31 [place] Bodies Not Reportable 10/13/18 05:31 [place]appen Rings Not Reportable 10/13/18 05:31 Carla Cells Not Reportable 10/13/18 05:31 Bite Cells Not Reportable 10/13/18 05:31 Crenated Cell Not Reportable 10/13/18 05:31 Elliptocytes Not Reportable 10/13/18 05:31 Acanthocytes (Spur) Not Reportable 10/13/18 05:31 Rouleaux Not Reportable 10/13/18 05:31 Hemoglobin C Crystals Not Reportable 10/13/18 05:31 Schistocytes Not Reportable 10/13/18 05:31 Malaria parasites Not Reportable 10/13/18 05:31 Michael Bodies Not Reportable 10/13/18 05:31 Hem Pathologist Commnt No 10/13/18 05:31 PT 13.0 Sec. (12.2-14.9) 10/11/18 20:25 INR 0.93 (0.87-1.13) 10/11/18 20:25 APTT 53.2 Sec. (24.2-36.6) H 10/11/18 20:25 Sodium 140 mmol/L (137-145) 10/13/18 05:31 Potassium 4.9 mmol/L (3.6-5.0) 10/13/18 05:31 Chloride 110.8 mmol/L (98-107) H 10/13/18 05:31 Carbon Dioxide 23 mmol/L (22-30) 10/13/18 05:31 Anion Gap 11 mmol/L 10/13/18 05:31 BUN 23 mg/dL (9-20) H 10/13/18 05:31 Creatinine 1.6 mg/dL (0.8-1.5) H 10/13/18 05:31 Estimated GFR 58 ml/min 10/13/18 05:31 BUN/Creatinine Ratio 14 % 10/13/18 05:31 Glucose 81 mg/dL (75-100) 10/13/18 05:31 POC Glucose 184 (70-105) H 10/10/18 13:23 Calcium 8.7 mg/dL (8.4-10.2) 10/13/18 05:31 Phosphorus 3.30 mg/dL (2.5-4.5) 10/13/18 05:31 Magnesium 2.20 mg/dL (1.7-2.3) 10/13/18 05:31 Total Bilirubin 0.20 mg/dL (0.1-1.2) 10/13/18 05:31 AST 22 units/L (5-40) 10/13/18 05:31 ALT 27 units/L (7-56) 10/13/18 05:31 Alkaline Phosphatase 115 units/L (35-129) 10/13/18 05:31 Ammonia < 10.0 umol/L (25-60) L 10/11/18 16:55 Troponin T < 0.010 ng/mL (0.00-0.029) 10/10/18 17:41 Total Protein 6.5 g/dL (6.3-8.2) 10/13/18 05:31 Albumin 2.8 g/dL (3.9-5) L 10/13/18 05:31 Albumin/Globulin Ratio 0.8 % 10/13/18 05:31 TSH 15.800 mlU/mL (0.270-4.200) H 10/12/18 05:30 Free T4 0.78 ng/dL (0.76-1.46) 10/12/18 05:30 Thyroxine (T4) 4.8 ug/dL (4.0-12.0) 10/12/18 16:30 Urine Color Yellow (Yellow) 10/11/18 11:05 Urine Turbidity Clear (Clear) 10/11/18 11:05 Urine pH 5.0 (5.0-7.0) 10/11/18 11:05 Ur Specific Nicolaus 1.038 (1.003-1.030) H 10/11/18 11:05 Urine Protein <15 mg/dl mg/dL (Negative) 10/11/18 11:05 Urine Glucose (UA) Neg mg/dL (Negative) 10/11/18 11:05 Urine Ketones Neg mg/dL (Negative) 10/11/18 11:05 Urine Blood Neg (Negative) 10/11/18 11:05 Urine Nitrite Neg (Negative) 10/11/18 11:05 Urine Bilirubin Neg (Negative) 10/11/18 11:05 Urine Urobilinogen 4.0 mg/dL (<2.0) 10/11/18 11:05 Ur Leukocyte Esterase Neg (Negative) 10/11/18 11:05 Urine WBC (Auto) 1.0 /HPF (0.0-6.0) 10/11/18 11:05 Urine RBC (Auto) 1.0 /HPF (0.0-6.0) 10/11/18 11:05 U Epithel Cells (Auto) < 1.0 /HPF (0-13.0) 10/11/18 11:05 CSF Appearance Clear 10/11/18 09:52 CSF Color Colorless 10/11/18 09:52 CSF WBC 1 /mm3 (1-10) 10/11/18 09:52 CSF RBC 0 /mm3 (0-0) 10/11/18 09:52 CSF Lymphocytes % 100 % (40-80) 10/11/18 09:52 CSF Pathologist Review C 10/11/18 09:52 CSF Glucose 68 mg/dL 10/11/18 09:52 CSF Total Protein 45 mg/dL 10/11/18 09:52 Urine Opiates Screen Presumptive negative 10/11/18 11:05 Urine Methadone Screen Presumptive negative 10/11/18 11:05 Ur Barbiturates Screen Presumptive negative 10/11/18 11:05 Ur Phencyclidine Scrn Presumptive negative 10/11/18 11:05 Ur Amphetamines Screen Presumptive negative 10/11/18 11:05 U Benzodiazepines Scrn Presumptive negative 10/11/18 11:05 Urine Cocaine Screen Presumptive negative 10/11/18 11:05 U Marijuana (THC) Screen Presumptive negative 10/11/18 11:05 Drugs of Abuse Note Disclamer 10/11/18 11:05 Active Medications - Current Medications Current Medications: Generic Name Dose Route Start Last Admin Trade Name Freq PRN Reason Stop Dose Admin Acetaminophen 650 mg 10/10/18 19:14 Tylenol PO Q4H PRN Pain MILD(1-3)/Fever >100.5/QUINN Albuterol 2.5 mg 10/10/18 19:14 Proventil IH Q4HRT PRN Shortness Of Breath Azithromycin 1,200 mg 10/13/18 10:00 10/13/18 10:29 Zithromax PO 1,200 mg We DILIA Administration Clobetasol Propionate 1 applic 10/11/18 22:00 10/14/18 11:08 Temovate TP 1 applic BID DILIA Administration Darunavir 800 mg 10/12/18 14:00 10/14/18 11:06 Prezista PO 800 mg QDAY DILIA Administration Emtricitabine 200 mg 10/12/18 13:45 10/14/18 11:08 Emtriva PO 200 mg QDAY DILIA Administration Gabapentin 300 mg 10/10/18 22:00 10/14/18 11:05 Neurontin PO 300 mg BID DILIA Administration Dextrose 1,000 mls @ 125 mls/hr 10/11/18 12:00 10/14/18 09:17 D5w IV 125 mls/hr DIRECT DILIA Administration Levetiracetam 500 mg 10/13/18 22:00 10/14/18 11:08 Keppra PO 500 mg BID DILIA Administration Levothyroxine Sodium 112 mcg 10/14/18 06:00 10/14/18 06:12 Synthroid PO 112 mcg DAILY@0600 DILIA Administration Levothyroxine Sodium 25 mcg 10/14/18 06:00 10/14/18 06:12 Synthroid PO 25 mcg DAILY@0600 DILIA Administration Lorazepam 2 mg 10/12/18 14:45 Ativan IV Q1H PRN Seizures Ondansetron HCl 4 mg 10/10/18 19:14 Zofran IV Q8H PRN Nausea And Vomiting Oxycodone/Acetaminophen 1 tab 10/10/18 19:14 10/13/18 10:50 Percocet 5/325 PO 1 tab Q6H PRN Administration Pain, Moderate (4-6) Pantoprazole Sodium 40 mg 10/11/18 10:00 10/14/18 11:05 Protonix PO 40 mg QDAY DILIA Administration Ritonavir 100 mg 10/12/18 14:00 10/14/18 11:07 Norvir PO 100 mg DAILY DILIA Administration Sodium Chloride 10 ml 10/10/18 22:00 10/13/18 22:45 Sodium Chloride Flush Syringe 10 Ml IV 10 ml BID DILIA Administration Sodium Chloride 10 ml 10/10/18 19:14 Sodium Chloride Flush Syringe 10 Ml IV PRN PRN LINE FLUSH Tenofovir Disoproxil Fumarate 300 mg 10/12/18 13:45 10/14/18 11:06 Viread PO 300 mg QDAY DILIA Administration Trimethoprim/Sulfamethoxazole 1 each 10/11/18 10:00 10/14/18 11:07 Bactrim Ds PO 1 each DAILY DILIA Administration Zolpidem Tartrate 10 mg 10/10/18 19:15 Ambien PO QHS PRN Insomnia
[2018-10-14] MEDS: SODIUM CHLORIDE FLUSH SYRINGE 10 ML IV SCH ×2 (15:16→23:04)
[2018-10-14] MEDS: DELTASONE PO SCH (19:26)
[2018-10-15] MEDS: D5W 1,000 ML IV SCH ×2 (01:23→19:19)
[2018-10-15] MEDS: SYNTHROID PO SCH ×2 (06:00)
[2018-10-15 08:26] LABS: Hematocrit 31.9 % (35.5-45.6); Hemoglobin 10.7 gm/dl (11.8-15.2); Mean Corpuscular HGB Conc 34 % (32-34); Mean Corpuscular Volume 93 fl (84-94); Red Blood Count 3.41 M/mm3 (3.65-5.03); Red Cell Distribution Width 17.1 % (13.2-15.2)
[2018-10-15 08:41] LABS: BUN/Creatinine Ratio 15; Blood Urea Nitrogen 20 mg/dL (9-20); Calcium 9.2 mg/dL (8.4-10.2); Hemolysis Index 3
[2018-10-15 08:54] LABS: Platelet Count 85 K/mm3 (140-440)
[2018-10-15] MEDS: KEPPRA PO SCH ×2 (11:10→21:45)
[2018-10-15] MEDS: EMTRIVA PO SCH (11:10)
[2018-10-15] MEDS: DELTASONE PO SCH (11:10)
[2018-10-15] MEDS: NEURONTIN PO SCH ×2 (11:10→21:45)
[2018-10-15] MEDS: PREZISTA PO SCH (11:10)
[2018-10-15] MEDS: NORVIR PO SCH (11:11)
[2018-10-15] MEDS: BACTRIM DS PO SCH (11:11)
[2018-10-15] MEDS: PROTONIX PO SCH (11:11)
[2018-10-15] MEDS: VIREAD PO SCH (11:12)
[2018-10-15] MEDS: TEMOVATE TP SCH ×2 (11:12→21:45)
[2018-10-15] MEDS: SODIUM CHLORIDE FLUSH SYRINGE 10 ML IV SCH ×2 (11:13→21:45)
[2018-10-15 11:58] LABS: Anisocytosis Few; Band Neutrophils # (Manual) 0.2 K/mm3; Basophils % (Manual) 0 % (0.0-1.8); Macrocytosis Few; Platelet Estimate Appears Decreased; Total Cells Counted 100
[2018-10-15] MEDS ORDERED: KIONEX PO ONE (12:00)
--- NOTE | 2018-10-15 12:24 | Progress Note ---
Assessment and Plan Assessment and plan: 38-year-old man with history of HIV, brought in by his daughter for altered mental status as he had repetitive speech, he was dazed. Per his daughter and he was also drooling and coughing he has had bloody diarrhea, and had a brain scan 3 weeks previously and was told that his viral load was high and his HAART regimen had just been changed --HIV/AIDS; management per ID --New onset seizures; seizure precautions Ativan as needed, patient just had an MRI lumbar puncture, ID following Neurology consult, EEG, supportive care. CT head without contrast 2 days ago no acute abnormality Mild atrophy and mild gliosis mild paranasal sinus disease, --Acute metabolic encephalopathy; multifactorial Neuro checks, neuro workup, neurology consult --Bradycardia; persistent, cardiology following --hypernatremia; significant improvement, continue current management --PATRICIO : Due to vasomotor nephropathy Gentle hydration, monitor renal function and avoid nephrotoxins --Hyperthyroidism; with elevated TSH Normal T4, repeat TFTs --Tobacco use; smoking cessation counseling Nicotine patch if needed --Eczema/AIDS dermatitis; --DVT prophylaxis Lovenox ID cleared for discharge Disposition; SNF placement History Interval history: Patient seen and examined medical records reviewed Patient feels slightly better no new complaints Vital signs noted Hospitalist Physical - Constitutional Vitals: Temp Pulse Resp BP Pulse Ox 97.9 F 56 L 20 114/73 99 10/15/18 11:56 10/15/18 11:56 10/15/18 11:56 10/15/18 11:56 10/15/18 11:56 General appearance: Present: no acute distress, well-nourished, other (Skin Rash/eczema) - EENT Eyes: Present: PERRL, EOM intact - Neck Neck: Present: supple, normal ROM - Respiratory Respiratory effort: normal Respiratory: bilateral: diminished, negative: rales, rhonchi, wheezing - Cardiovascular Rhythm: regular Heart Sounds: Present: S1 & S2 - Extremities Extremities: no ischemia, No edema - Abdominal General gastrointestinal: soft, non-tender, non-distended, normal bowel sounds - Integumentary Integumentary: Present: clear, warm - Psychiatric Psychiatric: appropriate mood/affect, cooperative - Neurologic Neurologic: moves all extremities Results - Labs CBC & Chem 7: 10/15/18 07:44 10/15/18 07:44 Labs: Laboratory Last Values WBC 2.8 K/mm3 (4.5-11.0) L 10/15/18 07:44 RBC 3.41 M/mm3 (3.65-5.03) L 10/15/18 07:44 Hgb 10.7 gm/dl (11.8-15.2) L 10/15/18 07:44 Hct 31.9 % (35.5-45.6) L 10/15/18 07:44 MCV 93 fl (84-94) 10/15/18 07:44 MCH 31 pg (28-32) 10/15/18 07:44 MCHC 34 % (32-34) 10/15/18 07:44 RDW 17.1 % (13.2-15.2) H 10/15/18 07:44 Plt Count 85 K/mm3 (140-440) L 10/15/18 07:44 Lymph % (Auto) 17.8 % (13.4-35.0) 10/12/18 05:10 [place] % (Auto) 6.7 % (0.0-7.3) 10/12/18 05:10 Eos % (Auto) 4.2 % (0.0-4.3) 10/12/18 05:10 Baso % (Auto) 0.7 % (0.0-1.8) 10/12/18 05:10 Lymph # 0.6 K/mm3 (1.2-5.4) L 10/12/18 05:10 [place] # 0.2 K/mm3 (0.0-0.8) 10/12/18 05:10 Eos # 0.1 K/mm3 (0.0-0.4) 10/12/18 05:10 Baso # 0.0 K/mm3 (0.0-0.1) 10/12/18 05:10 Add Manual Diff Complete 10/15/18 07:44 Total Counted 100 10/15/18 07:44 Seg Neutrophils % 70.6 % (40.0-70.0) H 10/12/18 05:10 Seg Neuts % (Manual) 79.0 % (40.0-70.0) H 10/15/18 07:44 Band Neutrophils % 6.0 % 10/15/18 07:44 Lymphocytes % (Manual) 12.0 % (13.4-35.0) L 10/15/18 07:44 Reactive Lymphs % (Man) 0 % 10/15/18 07:44 Monocytes % (Manual) 2.0 % (0.0-7.3) 10/15/18 07:44 Eosinophils % (Manual) 1.0 % (0.0-4.3) 10/15/18 07:44 Basophils % (Manual) 0 % (0.0-1.8) 10/15/18 07:44 Metamyelocytes % 0 % 10/15/18 07:44 Myelocytes % 0 % 10/15/18 07:44 Promyelocytes % 0 % 10/15/18 07:44 Blast Cells % 0 % 10/15/18 07:44 Nucleated RBC % Not Reportable 10/15/18 07:44 Seg Neutrophils # 2.4 K/mm3 (1.8-7.7) 10/12/18 05:10 Seg Neutrophils # Man 2.2 K/mm3 (1.8-7.7) 10/15/18 07:44 Band Neutrophils # 0.2 K/mm3 10/15/18 07:44 Lymphocytes # (Manual) 0.3 K/mm3 (1.2-5.4) L 10/15/18 07:44 Abs React Lymphs (Man) 0.0 K/mm3 10/15/18 07:44 Monocytes # (Manual) 0.1 K/mm3 (0.0-0.8) 10/15/18 07:44 Eosinophils # (Manual) 0.0 K/mm3 (0.0-0.4) 10/15/18 07:44 Basophils # (Manual) 0.0 K/mm3 (0.0-0.1) 10/15/18 07:44 Metamyelocytes # 0.0 K/mm3 10/15/18 07:44 Myelocytes # 0.0 K/mm3 10/15/18 07:44 Promyelocytes # 0.0 K/mm3 10/15/18 07:44 Blast Cells # 0.0 K/mm3 10/15/18 07:44 WBC Morphology Not Reportable 10/15/18 07:44 Hypersegmented Neuts Not Reportable 10/15/18 07:44 Hyposegmented Neuts Not Reportable 10/15/18 07:44 Hypogranular Neuts Not Reportable 10/15/18 07:44 Smudge Cells Not Reportable 10/15/18 07:44 Toxic Granulation Not Reportable 10/15/18 07:44 Toxic Vacuolation Not Reportable 10/15/18 07:44 Dohle Bodies Not Reportable 10/15/18 07:44 Pelger-Huet Anomaly Not Reportable 10/15/18 07:44 Ivonne Rods Not Reportable 10/15/18 07:44 Platelet Estimate Appears decreased 10/15/18 07:44 Clumped Platelets Not Reportable 10/15/18 07:44 Plt Clumps, EDTA Not Reportable 10/15/18 07:44 Large Platelets Not Reportable 10/15/18 07:44 Giant Platelets Not Reportable 10/15/18 07:44 Platelet Satelliting Not Reportable 10/15/18 07:44 Plt Morphology Comment Not Reportable 10/15/18 07:44 RBC Morphology Not Reportable 10/15/18 07:44 Dimorphic RBCs Not Reportable 10/15/18 07:44 Polychromasia Not Reportable 10/15/18 07:44 Hypochromasia Not Reportable 10/15/18 07:44 Poikilocytosis Not Reportable 10/15/18 07:44 Anisocytosis Few 10/15/18 07:44 Microcytosis Not Reportable 10/15/18 07:44 Macrocytosis Few 10/15/18 07:44 Spherocytes Not Reportable 10/15/18 07:44 Pappenheimer Bodies Not Reportable 10/15/18 07:44 Sickle Cells Not Reportable 10/15/18 07:44 Target Cells Not Reportable 10/15/18 07:44 Tear Drop Cells Not Reportable 10/15/18 07:44 Ovalocytes Not Reportable 10/15/18 07:44 Helmet Cells Not Reportable 10/15/18 07:44 [place] Bodies Not Reportable 10/15/18 07:44 Tobias Rings Not Reportable 10/15/18 07:44 Carla Cells Not Reportable 10/15/18 07:44 Bite Cells Not Reportable 10/15/18 07:44 Crenated Cell Not Reportable 10/15/18 07:44 Elliptocytes Not Reportable 10/15/18 07:44 Acanthocytes (Spur) Not Reportable 10/15/18 07:44 Rouleaux Not Reportable 10/15/18 07:44 Hemoglobin C Crystals Not Reportable 10/15/18 07:44 Schistocytes Not Reportable 10/15/18 07:44 Malaria parasites Not Reportable 10/15/18 07:44 Michael Bodies Not Reportable 10/15/18 07:44 Hem Pathologist Commnt No 10/15/18 07:44 PT 13.0 Sec. (12.2-14.9) 10/11/18 20:25 INR 0.93 (0.87-1.13) 10/11/18 20:25 APTT 53.2 Sec. (24.2-36.6) H 10/11/18 20:25 Sodium 143 mmol/L (137-145) 10/15/18 07:44 Potassium 5.6 mmol/L (3.6-5.0) H 10/15/18 07:44 Chloride 112.6 mmol/L (98-107) H 10/15/18 07:44 Carbon Dioxide 23 mmol/L (22-30) 10/15/18 07:44 Anion Gap 13 mmol/L 10/15/18 07:44 BUN 20 mg/dL (9-20) 10/15/18 07:44 Creatinine 1.3 mg/dL (0.8-1.5) 10/15/18 07:44 Estimated GFR > 60 ml/min 10/15/18 07:44 BUN/Creatinine Ratio 15 % 10/15/18 07:44 Glucose 117 mg/dL (75-100) H 10/15/18 07:44 POC Glucose 184 (70-105) H 10/10/18 13:23 Calcium 9.2 mg/dL (8.4-10.2) 10/15/18 07:44 Phosphorus 3.30 mg/dL (2.5-4.5) 10/13/18 05:31 Magnesium 2.20 mg/dL (1.7-2.3) 10/13/18 05:31 Total Bilirubin 0.20 mg/dL (0.1-1.2) 10/13/18 05:31 AST 22 units/L (5-40) 10/13/18 05:31 ALT 27 units/L (7-56) 10/13/18 05:31 Alkaline Phosphatase 115 units/L (35-129) 10/13/18 05:31 Ammonia < 10.0 umol/L (25-60) L 10/11/18 16:55 Troponin T < 0.010 ng/mL (0.00-0.029) 10/10/18 17:41 Total Protein 6.5 g/dL (6.3-8.2) 10/13/18 05:31 Albumin 2.8 g/dL (3.9-5) L 10/13/18 05:31 Albumin/Globulin Ratio 0.8 % 10/13/18 05:31 TSH 15.800 mlU/mL (0.270-4.200) H 10/12/18 05:30 Free T4 0.78 ng/dL (0.76-1.46) 10/12/18 05:30 Thyroxine (T4) 4.8 ug/dL (4.0-12.0) 10/12/18 16:30 Urine Color Yellow (Yellow) 10/11/18 11:05 Urine Turbidity Clear (Clear) 10/11/18 11:05 Urine pH 5.0 (5.0-7.0) 10/11/18 11:05 Ur Specific [place] 1.038 (1.003-1.030) H 10/11/18 11:05 Urine Protein <15 mg/dl mg/dL (Negative) 10/11/18 11:05 Urine Glucose (UA) Neg mg/dL (Negative) 10/11/18 11:05 Urine Ketones Neg mg/dL (Negative) 10/11/18 11:05 Urine Blood Neg (Negative) 10/11/18 11:05 Urine Nitrite Neg (Negative) 10/11/18 11:05 Urine Bilirubin Neg (Negative) 10/11/18 11:05 Urine Urobilinogen 4.0 mg/dL (<2.0) 10/11/18 11:05 Ur Leukocyte Esterase Neg (Negative) 10/11/18 11:05 Urine WBC (Auto) 1.0 /HPF (0.0-6.0) 10/11/18 11:05 Urine RBC (Auto) 1.0 /HPF (0.0-6.0) 10/11/18 11:05 U Epithel Cells (Auto) < 1.0 /HPF (0-13.0) 10/11/18 11:05 CSF Appearance Clear 10/11/18 09:52 CSF Color Colorless 10/11/18 09:52 CSF WBC 1 /mm3 (1-10) 10/11/18 09:52 CSF RBC 0 /mm3 (0-0) 10/11/18 09:52 CSF Lymphocytes % 100 % (40-80) 10/11/18 09:52 CSF Pathologist Review C 10/11/18 09:52 CSF Glucose 68 mg/dL 10/11/18 09:52 CSF Total Protein 45 mg/dL 10/11/18 09:52 CSF VDRL Nonreactive (Nonreactive) 10/12/18 10:29 Urine Opiates Screen Presumptive negative 10/11/18 11:05 Urine Methadone Screen Presumptive negative 10/11/18 11:05 Ur Barbiturates Screen Presumptive negative 10/11/18 11:05 Ur Phencyclidine Scrn Presumptive negative 10/11/18 11:05 Ur Amphetamines Screen Presumptive negative 10/11/18 11:05 U Benzodiazepines Scrn Presumptive negative 10/11/18 11:05 Urine Cocaine Screen Presumptive negative 10/11/18 11:05 U Marijuana (THC) Screen Presumptive negative 10/11/18 11:05 Drugs of Abuse Note Disclamer 10/11/18 11:05 Miscellaneous Test Flexitest 1 10/12/18 10:29 Active Medications - Current Medications Current Medications: Generic Name Dose Route Start Last Admin Trade Name Freq PRN Reason Stop Dose Admin Acetaminophen 650 mg 10/10/18 19:14 Tylenol PO Q4H PRN Pain MILD(1-3)/Fever >100.5/QUINN Albuterol 2.5 mg 10/10/18 19:14 Proventil IH Q4HRT PRN Shortness Of Breath Azithromycin 1,200 mg 10/13/18 10:00 10/13/18 10:29 Zithromax PO 1,200 mg We DILIA Administration Clobetasol Propionate 1 applic 10/11/18 22:00 10/15/18 11:12 Temovate TP 1 applic BID DILIA Administration Darunavir 800 mg 10/12/18 14:00 10/15/18 11:10 Prezista PO 800 mg QDAY DILIA Administration Emtricitabine 200 mg 10/12/18 13:45 10/15/18 11:10 Emtriva PO 200 mg QDAY DILIA Administration Gabapentin 300 mg 10/10/18 22:00 10/15/18 11:10 Neurontin PO 300 mg BID DILIA Administration Dextrose 1,000 mls @ 125 mls/hr 10/11/18 12:00 10/15/18 01:23 D5w IV 125 mls/hr DIRECT DILIA Administration Levetiracetam 500 mg 10/13/18 22:00 10/15/18 11:10 Keppra PO 500 mg BID DILIA Administration Levothyroxine Sodium 112 mcg 10/14/18 06:00 10/15/18 06:00 Synthroid PO 112 mcg DAILY@0600 DILIA Administration Levothyroxine Sodium 25 mcg 10/14/18 06:00 10/15/18 06:00 Synthroid PO 25 mcg DAILY@0600 DILIA Administration Lorazepam 2 mg 10/12/18 14:45 Ativan IV Q1H PRN Seizures Ondansetron HCl 4 mg 10/10/18 19:14 Zofran IV Q8H PRN Nausea And Vomiting Oxycodone/Acetaminophen 1 tab 10/10/18 19:14 10/13/18 10:50 Percocet 5/325 PO 1 tab Q6H PRN Administration Pain, Moderate (4-6) Pantoprazole Sodium 40 mg 10/11/18 10:00 10/15/18 11:11 Protonix PO 40 mg QDAY DILIA Administration Prednisone 40 mg 10/14/18 15:00 10/15/18 11:10 Deltasone PO 40 mg QDAY DILIA Administration Ritonavir 100 mg 10/12/18 14:00 10/15/18 11:11 Norvir PO 100 mg DAILY DILIA Administration Sodium Chloride 10 ml 10/10/18 22:00 10/15/18 11:13 Sodium Chloride Flush Syringe 10 Ml IV 10 ml BID DILIA Administration Sodium Chloride 10 ml 10/10/18 19:14 Sodium Chloride Flush Syringe 10 Ml IV PRN PRN LINE FLUSH Tenofovir Disoproxil Fumarate 300 mg 10/12/18 13:45 10/15/18 11:12 Viread PO 300 mg QDAY DILIA Administration Trimethoprim/Sulfamethoxazole 1 each 10/11/18 10:00 10/15/18 11:11 Bactrim Ds PO 1 each DAILY DILIA Administration Zolpidem Tartrate 10 mg 10/10/18 19:15 Ambien PO QHS PRN Insomnia
--- NOTE | 2018-10-15 14:53 | Progress Note ---
Assessment and Plan Cultures: CSF 10/11/2018 culture negative. Crypto neg Assessment: 38 y/o male with history of HIV infection follows with Dr Kaiser at [facility] since Jun 2018, last CD4=7, LF=041 on 09/20/2018, previously non-compliance with meds, currently on Biktarvy, Bactrim and azithromycin, without missing any dose; admitted on 10/10/2018 due to 3-week history of worsening confusion, generalized weakness, repetitive speech and poor memory. Also noted with decreased oral intake, drooling, gait instability. family reports an episode of "bloody diarrhea". -Acute on chronic encephalopathy: resolved; unclear etiology. S/p LP CSF showed wbc 1, prot 45, glu 68, CMV PCR<200, EBV PCR<200, LINDA PCR<500, VDRL non reactive, Crypto neg. Patient has been seen at Dr Kaiser's office for AMS 3 weeks ago. He had a recent CT head which was negative. Also, he was checked for RPR which was negative and Toxoplasma IgG positive. Repeat CT head showed no intracraneal lesions or hemorrhage. Mild decreased bilateral periventricular density with white matter without mass effect c/w mild atrophic gliosis, patchy ethmoidal mucosal. Patient was re-started on ART Biktarvy in Jun 2018. 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 No fever. Denies headaches or focal neurologic signs. DDx toxoplasma encephalitis, DATA ENGINEER lymphoma, mycobacterial infection, cryptococcosis, less likely multifocal leukoencephalopathy. 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 Recent TB test at HIV office negative. -Bloody stools ? colitis due to CMV vs other etiology resolved -Pancytopenia: worsening thrombocytopenia, from HIV versus opportuistic ifnections -Chronic generalized eczema: with severe itching, better on prednisone -History of MSSA cutaneous abscesses with MSSA bacteremia -History of right femoral zoster. Recommendations: - Prednisone 40 mg PO daily with taper 2-3 weeks for severe eczema - continue clobetazole - f/u AFB-blood cultures - continue Bactrim 1 tab qday and azithromycin 1200 mg po qweek - continue Emtriva, Darunavir, Ritonavir and Tenofovir while inpatient- Biktarvy not on hospital formulary Ok to d/c home with ID clinic f/u in 1-2 weeks Will follow. Roselia Tinsley Edwards, MD Infectious Diseases [employer] [facility] ([facility]) M [phone] O [phone] Subjective Date of service: 10/15/18 Principal diagnosis: AIDS/seizures Interval history: Feels better, reports excessive itching resolved, no fever, more alert. Objective - Exam Narrative Exam: General appearance: Alert in NAD, talking Eyes: anicteric sclerae, moist conjunctivae; no lid-lag; PERRLA HENT: Atraumatic; oropharynx clear Neck: Trachea midline; supple, no thyromegaly or lymphadenopathy Lungs: CTA, +brian surg scars in thorax CV: RRR Abdomen: Soft, non-tender; no masses or hepatosplenomegaly Extremities: No peripheral edema or extremity lymphadenopathy Skin: generalized scaly rash over face, torso Psych: no agitation. Neuro: alert talking moving all extr follows commands - Constitutional Vitals: Vital Signs Temp Pulse Resp BP Pulse Ox 97.9 F 56 L 20 114/73 99 10/15/18 11:56 10/15/18 11:56 10/15/18 11:56 10/15/18 11:56 10/15/18 11:56 Temperature -Last 24 Hours Temperature 97.9 F Temperature 97.9 F Temperature 97.9 F Temperature 97.6 F - Labs CBC & Chem 7: 10/15/18 07:44 10/15/18 07:44 Labs: Abnormal lab results 10/15/18 10/15/18 Range/Units 07:44 07:44 WBC 2.8 L (4.5-11.0) K/mm3 RBC 3.41 L (3.65-5.03) M/mm3 Hgb 10.7 L (11.8-15.2) gm/dl Hct 31.9 L (35.5-45.6) % RDW 17.1 H (13.2-15.2) % Plt Count 85 L (140-440) K/mm3 Seg Neuts % (Manual) 79.0 H (40.0-70.0) % Lymphocytes % (Manual) 12.0 L (13.4-35.0) % Lymphocytes # (Manual) 0.3 L (1.2-5.4) K/mm3 Potassium 5.6 H (3.6-5.0) mmol/L Chloride 112.6 H (98-107) mmol/L Glucose 117 H (75-100) mg/dL
[2018-10-16] MEDS: D5W 1,000 ML IV SCH (03:48)
[2018-10-16] MEDS: SYNTHROID PO SCH ×2 (05:46)
--- NOTE | 2018-10-16 08:57 | Progress Note ---
Assessment and Plan Assessment and plan: 38-year-old man with history of HIV, brought in by his daughter for altered mental status as he had repetitive speech, he was dazed. Per his daughter and he was also drooling and coughing he has had bloody diarrhea, and had a brain scan 3 weeks previously and was told that his viral load was high and his HAART regimen had just been changed --HIV/AIDS; management per ID --New onset seizures; seizure precautions Ativan as needed, patient just had an MRI lumbar puncture, ID following Neurology consult, EEG, supportive care. CT head without contrast 2 days ago no acute abnormality Mild atrophy and mild gliosis mild paranasal sinus disease, --Acute metabolic encephalopathy; multifactorial Neuro checks, neuro workup, neurology consult --Bradycardia; persistent, cardiology following --hypernatremia; significant improvement, continue current management --PATRICIO : Due to vasomotor nephropathy Gentle hydration, monitor renal function and avoid nephrotoxins --Hyperthyroidism; with elevated TSH Normal T4, repeat TFTs --Tobacco use; smoking cessation counseling Nicotine patch if needed --Eczema/AIDS dermatitis; --DVT prophylaxis Lovenox ID cleared for discharge Disposition; SNF placement History Interval history: Patient seen and examined medical records reviewed No new events reported by the nursing staff Complains of generalized weakness Hospitalist Physical - Constitutional Vitals: Temp Pulse Resp BP Pulse Ox 98.3 F 113 H 18 104/71 98 10/15/18 23:41 10/15/18 23:41 10/15/18 23:41 10/15/18 23:41 10/15/18 23:41 General appearance: Present: no acute distress, well-nourished, other (Skin Rash/eczema) - EENT Eyes: Present: PERRL, EOM intact - Neck Neck: Present: supple, normal ROM - Respiratory Respiratory effort: normal Respiratory: bilateral: diminished, rhonchi, negative: rales, wheezing - Cardiovascular Rhythm: regular Heart Sounds: Present: S1 & S2 - Extremities Extremities: no ischemia, No edema - Abdominal General gastrointestinal: soft, non-tender, non-distended, normal bowel sounds - Integumentary Integumentary: Present: clear, warm - Psychiatric Psychiatric: appropriate mood/affect, cooperative - Neurologic Neurologic: CNII-XII intact, moves all extremities Results - Labs CBC & Chem 7: 10/15/18 07:44 10/16/18 09:12 Labs: Laboratory Last Values WBC 2.8 K/mm3 (4.5-11.0) L 10/15/18 07:44 RBC 3.41 M/mm3 (3.65-5.03) L 10/15/18 07:44 Hgb 10.7 gm/dl (11.8-15.2) L 10/15/18 07:44 Hct 31.9 % (35.5-45.6) L 10/15/18 07:44 MCV 93 fl (84-94) 10/15/18 07:44 MCH 31 pg (28-32) 10/15/18 07:44 MCHC 34 % (32-34) 10/15/18 07:44 RDW 17.1 % (13.2-15.2) H 10/15/18 07:44 Plt Count 85 K/mm3 (140-440) L 10/15/18 07:44 Lymph % (Auto) 17.8 % (13.4-35.0) 10/12/18 05:10 [place] % (Auto) 6.7 % (0.0-7.3) 10/12/18 05:10 Eos % (Auto) 4.2 % (0.0-4.3) 10/12/18 05:10 Baso % (Auto) 0.7 % (0.0-1.8) 10/12/18 05:10 Lymph # 0.6 K/mm3 (1.2-5.4) L 10/12/18 05:10 [place] # 0.2 K/mm3 (0.0-0.8) 10/12/18 05:10 Eos # 0.1 K/mm3 (0.0-0.4) 10/12/18 05:10 Baso # 0.0 K/mm3 (0.0-0.1) 10/12/18 05:10 Add Manual Diff Complete 10/15/18 07:44 Total Counted 100 10/15/18 07:44 Seg Neutrophils % 70.6 % (40.0-70.0) H 10/12/18 05:10 Seg Neuts % (Manual) 79.0 % (40.0-70.0) H 10/15/18 07:44 Band Neutrophils % 6.0 % 10/15/18 07:44 Lymphocytes % (Manual) 12.0 % (13.4-35.0) L 10/15/18 07:44 Reactive Lymphs % (Man) 0 % 10/15/18 07:44 Monocytes % (Manual) 2.0 % (0.0-7.3) 10/15/18 07:44 Eosinophils % (Manual) 1.0 % (0.0-4.3) 10/15/18 07:44 Basophils % (Manual) 0 % (0.0-1.8) 10/15/18 07:44 Metamyelocytes % 0 % 10/15/18 07:44 Myelocytes % 0 % 10/15/18 07:44 Promyelocytes % 0 % 10/15/18 07:44 Blast Cells % 0 % 10/15/18 07:44 Nucleated RBC % Not Reportable 10/15/18 07:44 Seg Neutrophils # 2.4 K/mm3 (1.8-7.7) 10/12/18 05:10 Seg Neutrophils # Man 2.2 K/mm3 (1.8-7.7) 10/15/18 07:44 Band Neutrophils # 0.2 K/mm3 10/15/18 07:44 Lymphocytes # (Manual) 0.3 K/mm3 (1.2-5.4) L 10/15/18 07:44 Abs React Lymphs (Man) 0.0 K/mm3 10/15/18 07:44 Monocytes # (Manual) 0.1 K/mm3 (0.0-0.8) 10/15/18 07:44 Eosinophils # (Manual) 0.0 K/mm3 (0.0-0.4) 10/15/18 07:44 Basophils # (Manual) 0.0 K/mm3 (0.0-0.1) 10/15/18 07:44 Metamyelocytes # 0.0 K/mm3 10/15/18 07:44 Myelocytes # 0.0 K/mm3 10/15/18 07:44 Promyelocytes # 0.0 K/mm3 10/15/18 07:44 Blast Cells # 0.0 K/mm3 10/15/18 07:44 WBC Morphology Not Reportable 10/15/18 07:44 Hypersegmented Neuts Not Reportable 10/15/18 07:44 Hyposegmented Neuts Not Reportable 10/15/18 07:44 Hypogranular Neuts Not Reportable 10/15/18 07:44 Smudge Cells Not Reportable 10/15/18 07:44 Toxic Granulation Not Reportable 10/15/18 07:44 Toxic Vacuolation Not Reportable 10/15/18 07:44 Dohle Bodies Not Reportable 10/15/18 07:44 Pelger-Huet Anomaly Not Reportable 10/15/18 07:44 Ivonne Rods Not Reportable 10/15/18 07:44 Platelet Estimate Appears decreased 10/15/18 07:44 Clumped Platelets Not Reportable 10/15/18 07:44 Plt Clumps, EDTA Not Reportable 10/15/18 07:44 Large Platelets Not Reportable 10/15/18 07:44 Giant Platelets Not Reportable 10/15/18 07:44 Platelet Satelliting Not Reportable 10/15/18 07:44 Plt Morphology Comment Not Reportable 10/15/18 07:44 RBC Morphology Not Reportable 10/15/18 07:44 Dimorphic RBCs Not Reportable 10/15/18 07:44 Polychromasia Not Reportable 10/15/18 07:44 Hypochromasia Not Reportable 10/15/18 07:44 Poikilocytosis Not Reportable 10/15/18 07:44 Anisocytosis Few 10/15/18 07:44 Microcytosis Not Reportable 10/15/18 07:44 Macrocytosis Few 10/15/18 07:44 Spherocytes Not Reportable 10/15/18 07:44 Pappenheimer Bodies Not Reportable 10/15/18 07:44 Sickle Cells Not Reportable 10/15/18 07:44 Target Cells Not Reportable 10/15/18 07:44 Tear Drop Cells Not Reportable 10/15/18 07:44 Ovalocytes Not Reportable 10/15/18 07:44 Helmet Cells Not Reportable 10/15/18 07:44 Azevedo-Weldon Bodies Not Reportable 10/15/18 07:44 Welcome Rings Not Reportable 10/15/18 07:44 Carla Cells Not Reportable 10/15/18 07:44 Bite Cells Not Reportable 10/15/18 07:44 Crenated Cell Not Reportable 10/15/18 07:44 Elliptocytes Not Reportable 10/15/18 07:44 Acanthocytes (Spur) Not Reportable 10/15/18 07:44 Rouleaux Not Reportable 10/15/18 07:44 Hemoglobin C Crystals Not Reportable 10/15/18 07:44 Schistocytes Not Reportable 10/15/18 07:44 Malaria parasites Not Reportable 10/15/18 07:44 Michael Bodies Not Reportable 10/15/18 07:44 Hem Pathologist Commnt No 10/15/18 07:44 PT 13.0 Sec. (12.2-14.9) 10/11/18 20:25 INR 0.93 (0.87-1.13) 10/11/18 20:25 APTT 53.2 Sec. (24.2-36.6) H 10/11/18 20:25 Sodium 143 mmol/L (137-145) 10/15/18 07:44 Potassium 5.6 mmol/L (3.6-5.0) H 10/15/18 07:44 Chloride 112.6 mmol/L (98-107) H 10/15/18 07:44 Carbon Dioxide 23 mmol/L (22-30) 10/15/18 07:44 Anion Gap 13 mmol/L 10/15/18 07:44 BUN 20 mg/dL (9-20) 10/15/18 07:44 Creatinine 1.3 mg/dL (0.8-1.5) 10/15/18 07:44 Estimated GFR > 60 ml/min 10/15/18 07:44 BUN/Creatinine Ratio 15 % 10/15/18 07:44 Glucose 117 mg/dL (75-100) H 10/15/18 07:44 POC Glucose 184 (70-105) H 10/10/18 13:23 Calcium 9.2 mg/dL (8.4-10.2) 10/15/18 07:44 Phosphorus 3.30 mg/dL (2.5-4.5) 10/13/18 05:31 Magnesium 2.20 mg/dL (1.7-2.3) 10/13/18 05:31 Total Bilirubin 0.20 mg/dL (0.1-1.2) 10/13/18 05:31 AST 22 units/L (5-40) 10/13/18 05:31 ALT 27 units/L (7-56) 10/13/18 05:31 Alkaline Phosphatase 115 units/L (35-129) 10/13/18 05:31 Ammonia < 10.0 umol/L (25-60) L 10/11/18 16:55 Troponin T < 0.010 ng/mL (0.00-0.029) 10/10/18 17:41 Total Protein 6.5 g/dL (6.3-8.2) 10/13/18 05:31 Albumin 2.8 g/dL (3.9-5) L 10/13/18 05:31 Albumin/Globulin Ratio 0.8 % 10/13/18 05:31 TSH 15.800 mlU/mL (0.270-4.200) H 10/12/18 05:30 Free T4 0.78 ng/dL (0.76-1.46) 10/12/18 05:30 Thyroxine (T4) 4.8 ug/dL (4.0-12.0) 10/12/18 16:30 Urine Color Yellow (Yellow) 10/11/18 11:05 Urine Turbidity Clear (Clear) 10/11/18 11:05 Urine pH 5.0 (5.0-7.0) 10/11/18 11:05 Ur Specific [place] 1.038 (1.003-1.030) H 10/11/18 11:05 Urine Protein <15 mg/dl mg/dL (Negative) 10/11/18 11:05 Urine Glucose (UA) Neg mg/dL (Negative) 10/11/18 11:05 Urine Ketones Neg mg/dL (Negative) 10/11/18 11:05 Urine Blood Neg (Negative) 10/11/18 11:05 Urine Nitrite Neg (Negative) 10/11/18 11:05 Urine Bilirubin Neg (Negative) 10/11/18 11:05 Urine Urobilinogen 4.0 mg/dL (<2.0) 10/11/18 11:05 Ur Leukocyte Esterase Neg (Negative) 10/11/18 11:05 Urine WBC (Auto) 1.0 /HPF (0.0-6.0) 10/11/18 11:05 Urine RBC (Auto) 1.0 /HPF (0.0-6.0) 10/11/18 11:05 U Epithel Cells (Auto) < 1.0 /HPF (0-13.0) 10/11/18 11:05 CSF Appearance Clear 10/11/18 09:52 CSF Color Colorless 10/11/18 09:52 CSF WBC 1 /mm3 (1-10) 10/11/18 09:52 CSF RBC 0 /mm3 (0-0) 10/11/18 09:52 CSF Lymphocytes % 100 % (40-80) 10/11/18 09:52 CSF Pathologist Review C 10/11/18 09:52 CSF Glucose 68 mg/dL 10/11/18 09:52 CSF Total Protein 45 mg/dL 10/11/18 09:52 CSF VDRL Nonreactive (Nonreactive) 10/12/18 10:29 Urine Opiates Screen Presumptive negative 10/11/18 11:05 Urine Methadone Screen Presumptive negative 10/11/18 11:05 Ur Barbiturates Screen Presumptive negative 10/11/18 11:05 Ur Phencyclidine Scrn Presumptive negative 10/11/18 11:05 Ur Amphetamines Screen Presumptive negative 10/11/18 11:05 U Benzodiazepines Scrn Presumptive negative 10/11/18 11:05 Urine Cocaine Screen Presumptive negative 10/11/18 11:05 U Marijuana (THC) Screen Presumptive negative 10/11/18 11:05 Drugs of Abuse Note Disclamer 10/11/18 11:05 Miscellaneous Test Flexitest 1 10/12/18 10:29 Active Medications - Current Medications Current Medications: Generic Name Dose Route Start Last Admin Trade Name Freq PRN Reason Stop Dose Admin Acetaminophen 650 mg 10/10/18 19:14 Tylenol PO Q4H PRN Pain MILD(1-3)/Fever >100.5/QUINN Albuterol 2.5 mg 10/10/18 19:14 Proventil IH Q4HRT PRN Shortness Of Breath Azithromycin 1,200 mg 10/13/18 10:00 10/13/18 10:29 Zithromax PO 1,200 mg We DILIA Administration Clobetasol Propionate 1 applic 10/11/18 22:00 10/15/18 21:45 Temovate TP 1 applic BID DILIA Administration Darunavir 800 mg 10/12/18 14:00 10/15/18 11:10 Prezista PO 800 mg QDAY DILIA Administration Emtricitabine 200 mg 10/12/18 13:45 10/15/18 11:10 Emtriva PO 200 mg QDAY DILIA Administration Gabapentin 300 mg 10/10/18 22:00 10/15/18 21:45 Neurontin PO 300 mg BID DILIA Administration Dextrose 1,000 mls @ 125 mls/hr 10/11/18 12:00 10/16/18 03:48 D5w IV 125 mls/hr DIRECT DILIA Administration Levetiracetam 500 mg 10/13/18 22:00 10/15/18 21:45 Keppra PO 500 mg BID DILIA Administration Levothyroxine Sodium 112 mcg 10/14/18 06:00 10/16/18 05:46 Synthroid PO 112 mcg DAILY@0600 DILIA Administration Levothyroxine Sodium 25 mcg 10/14/18 06:00 10/16/18 05:46 Synthroid PO 25 mcg DAILY@0600 DILIA Administration Lorazepam 2 mg 10/12/18 14:45 Ativan IV Q1H PRN Seizures Ondansetron HCl 4 mg 10/10/18 19:14 Zofran IV Q8H PRN Nausea And Vomiting Oxycodone/Acetaminophen 1 tab 10/10/18 19:14 10/13/18 10:50 Percocet 5/325 PO 1 tab Q6H PRN Administration Pain, Moderate (4-6) Pantoprazole Sodium 40 mg 10/11/18 10:00 10/15/18 11:11 Protonix PO 40 mg QDAY DILIA Administration Prednisone 40 mg 10/14/18 15:00 10/15/18 11:10 Deltasone PO 40 mg QDAY DILIA Administration Ritonavir 100 mg 10/12/18 14:00 10/15/18 11:11 Norvir PO 100 mg DAILY DILIA Administration Sodium Chloride 10 ml 10/10/18 22:00 10/15/18 21:45 Sodium Chloride Flush Syringe 10 Ml IV 10 ml BID DILIA Administration Sodium Chloride 10 ml 10/10/18 19:14 Sodium Chloride Flush Syringe 10 Ml IV PRN PRN LINE FLUSH Tenofovir Disoproxil Fumarate 300 mg 10/12/18 13:45 10/15/18 11:12 Viread PO 300 mg QDAY DILIA Administration Trimethoprim/Sulfamethoxazole 1 each 10/11/18 10:00 10/15/18 11:11 Bactrim Ds PO 1 each DAILY DILIA Administration Zolpidem Tartrate 10 mg 10/10/18 19:15 Ambien PO QHS PRN Insomnia Nutrition/Malnutrition Assess - Dietary Evaluation Nutrition/Malnutrition Findings: Nutrition Notes Start: 10/15/18 16:47 Freq: Status: Active Protocol: Document 10/15/18 16:47 RM (Rec: 10/15/18 16:53 RM [id number]) Nutrition Notes Need for Assessment generated from: LOS Initial or Follow up Assessment Current Diagnosis Acute Kidney Injury Other Pertinent Diagnosis HIV/AIDS, Acute encephalopathy , Progress multifocal leukoencephalopathy Current Diet Regular Labs/Tests Reviewed Pertinent Medications Reviewed Height 5 ft 9 in Weight 82.4 kg [place] Body Weight (kg) 72.72 BMI 26.8 Subjective/Other Information Screened for LOS. Per tech pt eats 50% of more of his meals. Recorded PO intake 46% X 4 days. Burn Absent Trauma Absent #1 Nutrition Diagnosis Inadequate oral intake Etiology acute encephalopathy, progressive multifocal leukoencephalopathy As Evidenced by Signs and Symptoms pt tech statement that pt eats 50% or more of his meals, recorded PO intake 46% X 4 days Is patient on ventilator? No Is Patient Ambulatory and/or Out of Bed No REE-(Kila-St. Jeor-confined to bed) 2071.100 Calculation Used for Recommendations Kila-St Jeor Additional Notes Protein Needs: 82-107g (1-1.3g /kg) Fluid Needs: 1 ml/kcal Nutrition Intervention Change Diet Order: Continue current Add Supplement/Snack (indicate name/kcal Ensure Enlive 1 daily /protein ) Provides kCal: 350 Provides Protein (gm) 20 Goal #1 Meet at least 75% of calorie and protein needs via PO and ONS intakes Anticipated Discharge Needs: Regular diet Follow-Up By: 10/19/18 Additional Comments Follow for PO and ONS intakes
[2018-10-16 10:46] LABS: BUN/Creatinine Ratio 10; Blood Urea Nitrogen 12 mg/dL (9-20); Calcium 8.8 mg/dL (8.4-10.2); Hemolysis Index 10
[2018-10-16] MEDS: VIREAD PO SCH (11:45)
[2018-10-16] MEDS: DELTASONE PO SCH (11:45)
[2018-10-16] MEDS: EMTRIVA PO SCH (11:46)
[2018-10-16] MEDS: NORVIR PO SCH (11:46)
[2018-10-16] MEDS: NEURONTIN PO SCH ×2 (11:46→22:20)
[2018-10-16] MEDS: PREZISTA PO SCH (11:46)
[2018-10-16] MEDS: KEPPRA PO SCH ×2 (11:46→22:20)
[2018-10-16] MEDS: BACTRIM DS PO SCH (11:46)
[2018-10-16] MEDS: PROTONIX PO SCH (11:46)
[2018-10-16] MEDS: TEMOVATE TP SCH ×2 (11:47→22:28)
[2018-10-16] MEDS: SODIUM CHLORIDE FLUSH SYRINGE 10 ML IV SCH ×2 (11:47→22:21)
[2018-10-17] MEDS: SYNTHROID PO SCH ×2 (06:49)
--- NOTE | 2018-10-17 08:38 | Progress Note ---
Assessment and Plan Assessment and plan: 38-year-old man with history of HIV, brought in by his daughter for altered mental status as he had repetitive speech, he was dazed. Per his daughter and he was also drooling and coughing he has had bloody diarrhea, and had a brain scan 3 weeks previously and was told that his viral load was high and his HAART regimen had just been changed --HIV/AIDS; management per ID ID cleared for discharge and follow-up as outpatient --New onset seizures; seizure precautions Ativan as needed, patient just had an MRI lumbar puncture, ID following Neurology evaluated, EEG, grade 3 encephalopathy Continue Keppra, do not drive --Acute metabolic encephalopathy; multifactorial Neuro checks, neuro workup, no acute abnormality neurology following --Bradycardia; improved persistent, cardiology following --hypernatremia; significant improvement, Increase water intake --PATRICIO : Due to vasomotor nephropathy Gentle hydration, monitor renal function and avoid nephrotoxins --Hyperthyroidism; with elevated TSH Normal T4, repeat TFTs --Tobacco use; smoking cessation counseling Nicotine patch if needed --Eczema/AIDS dermatitis; --DVT prophylaxis Lovenox ID cleared for discharge Disposition; SNF placement History Interval history: Patient seen and examined medical records reviewed No new events reported by the nursing staff Patient feels better and wants to go home Does not want SNF placement Hospitalist Physical - Constitutional Vitals: Temp Pulse Resp BP Pulse Ox 96.0 F L 62 20 108/62 97 10/16/18 16:53 10/17/18 05:13 10/16/18 22:00 10/17/18 05:13 10/17/18 05:13 General appearance: Present: no acute distress, well-nourished, other (Skin Rash/eczema) - EENT Eyes: Present: PERRL, EOM intact - Neck Neck: Present: supple, normal ROM - Respiratory Respiratory effort: normal Respiratory: bilateral: diminished, negative: rales, rhonchi, wheezing - Cardiovascular Rhythm: regular Heart Sounds: Present: S1 & S2 - Extremities Extremities: no ischemia, No edema - Abdominal General gastrointestinal: soft, non-tender, non-distended, normal bowel sounds - Integumentary Integumentary: Present: clear, warm - Psychiatric Psychiatric: appropriate mood/affect, cooperative - Neurologic Neurologic: moves all extremities Results - Labs CBC & Chem 7: 10/15/18 07:44 10/17/18 06:55 Labs: Laboratory Last Values WBC 2.8 K/mm3 (4.5-11.0) L 10/15/18 07:44 RBC 3.41 M/mm3 (3.65-5.03) L 10/15/18 07:44 Hgb 10.7 gm/dl (11.8-15.2) L 10/15/18 07:44 Hct 31.9 % (35.5-45.6) L 10/15/18 07:44 MCV 93 fl (84-94) 10/15/18 07:44 MCH 31 pg (28-32) 10/15/18 07:44 MCHC 34 % (32-34) 10/15/18 07:44 RDW 17.1 % (13.2-15.2) H 10/15/18 07:44 Plt Count 85 K/mm3 (140-440) L 10/15/18 07:44 Lymph % (Auto) 17.8 % (13.4-35.0) 10/12/18 05:10 [place] % (Auto) 6.7 % (0.0-7.3) 10/12/18 05:10 Eos % (Auto) 4.2 % (0.0-4.3) 10/12/18 05:10 Baso % (Auto) 0.7 % (0.0-1.8) 10/12/18 05:10 Lymph # 0.6 K/mm3 (1.2-5.4) L 10/12/18 05:10 [place] # 0.2 K/mm3 (0.0-0.8) 10/12/18 05:10 Eos # 0.1 K/mm3 (0.0-0.4) 10/12/18 05:10 Baso # 0.0 K/mm3 (0.0-0.1) 10/12/18 05:10 Add Manual Diff Complete 10/15/18 07:44 Total Counted 100 10/15/18 07:44 Seg Neutrophils % 70.6 % (40.0-70.0) H 10/12/18 05:10 Seg Neuts % (Manual) 79.0 % (40.0-70.0) H 10/15/18 07:44 Band Neutrophils % 6.0 % 10/15/18 07:44 Lymphocytes % (Manual) 12.0 % (13.4-35.0) L 10/15/18 07:44 Reactive Lymphs % (Man) 0 % 10/15/18 07:44 Monocytes % (Manual) 2.0 % (0.0-7.3) 10/15/18 07:44 Eosinophils % (Manual) 1.0 % (0.0-4.3) 10/15/18 07:44 Basophils % (Manual) 0 % (0.0-1.8) 10/15/18 07:44 Metamyelocytes % 0 % 10/15/18 07:44 Myelocytes % 0 % 10/15/18 07:44 Promyelocytes % 0 % 10/15/18 07:44 Blast Cells % 0 % 10/15/18 07:44 Nucleated RBC % Not Reportable 10/15/18 07:44 Seg Neutrophils # 2.4 K/mm3 (1.8-7.7) 10/12/18 05:10 Seg Neutrophils # Man 2.2 K/mm3 (1.8-7.7) 10/15/18 07:44 Band Neutrophils # 0.2 K/mm3 10/15/18 07:44 Lymphocytes # (Manual) 0.3 K/mm3 (1.2-5.4) L 10/15/18 07:44 Abs React Lymphs (Man) 0.0 K/mm3 10/15/18 07:44 Monocytes # (Manual) 0.1 K/mm3 (0.0-0.8) 10/15/18 07:44 Eosinophils # (Manual) 0.0 K/mm3 (0.0-0.4) 10/15/18 07:44 Basophils # (Manual) 0.0 K/mm3 (0.0-0.1) 10/15/18 07:44 Metamyelocytes # 0.0 K/mm3 10/15/18 07:44 Myelocytes # 0.0 K/mm3 10/15/18 07:44 Promyelocytes # 0.0 K/mm3 10/15/18 07:44 Blast Cells # 0.0 K/mm3 10/15/18 07:44 WBC Morphology Not Reportable 10/15/18 07:44 Hypersegmented Neuts Not Reportable 10/15/18 07:44 Hyposegmented Neuts Not Reportable 10/15/18 07:44 Hypogranular Neuts Not Reportable 10/15/18 07:44 Smudge Cells Not Reportable 10/15/18 07:44 Toxic Granulation Not Reportable 10/15/18 07:44 Toxic Vacuolation Not Reportable 10/15/18 07:44 Dohle Bodies Not Reportable 10/15/18 07:44 Pelger-Huet Anomaly Not Reportable 10/15/18 07:44 Ivonne Rods Not Reportable 10/15/18 07:44 Platelet Estimate Appears decreased 10/15/18 07:44 Clumped Platelets Not Reportable 10/15/18 07:44 Plt Clumps, EDTA Not Reportable 10/15/18 07:44 Large Platelets Not Reportable 10/15/18 07:44 Giant Platelets Not Reportable 10/15/18 07:44 Platelet Satelliting Not Reportable 10/15/18 07:44 Plt Morphology Comment Not Reportable 10/15/18 07:44 RBC Morphology Not Reportable 10/15/18 07:44 Dimorphic RBCs Not Reportable 10/15/18 07:44 Polychromasia Not Reportable 10/15/18 07:44 Hypochromasia Not Reportable 10/15/18 07:44 Poikilocytosis Not Reportable 10/15/18 07:44 Anisocytosis Few 10/15/18 07:44 Microcytosis Not Reportable 10/15/18 07:44 Macrocytosis Few 10/15/18 07:44 Spherocytes Not Reportable 10/15/18 07:44 Pappenheimer Bodies Not Reportable 10/15/18 07:44 Sickle Cells Not Reportable 10/15/18 07:44 Target Cells Not Reportable 10/15/18 07:44 Tear Drop Cells Not Reportable 10/15/18 07:44 Ovalocytes Not Reportable 10/15/18 07:44 Helmet Cells Not Reportable 10/15/18 07:44 Azevedo-Otis Bodies Not Reportable 10/15/18 07:44 [place] Rings Not Reportable 10/15/18 07:44 Carla Cells Not Reportable 10/15/18 07:44 Bite Cells Not Reportable 10/15/18 07:44 Crenated Cell Not Reportable 10/15/18 07:44 Elliptocytes Not Reportable 10/15/18 07:44 Acanthocytes (Spur) Not Reportable 10/15/18 07:44 Rouleaux Not Reportable 10/15/18 07:44 Hemoglobin C Crystals Not Reportable 10/15/18 07:44 Schistocytes Not Reportable 10/15/18 07:44 Malaria parasites Not Reportable 10/15/18 07:44 Michael Bodies Not Reportable 10/15/18 07:44 Hem Pathologist Commnt No 10/15/18 07:44 PT 13.0 Sec. (12.2-14.9) 10/11/18 20:25 INR 0.93 (0.87-1.13) 10/11/18 20:25 APTT 53.2 Sec. (24.2-36.6) H 10/11/18 20:25 Sodium 147 mmol/L (137-145) H 10/16/18 09:12 Potassium 3.7 mmol/L (3.6-5.0) D 10/16/18 09:12 Chloride 113.7 mmol/L (98-107) H 10/16/18 09:12 Carbon Dioxide 25 mmol/L (22-30) 10/16/18 09:12 Anion Gap 12 mmol/L 10/16/18 09:12 BUN 12 mg/dL (9-20) 10/16/18 09:12 Creatinine 1.2 mg/dL (0.8-1.5) 10/16/18 09:12 Estimated GFR > 60 ml/min 10/16/18 09:12 BUN/Creatinine Ratio 10 % 10/16/18 09:12 Glucose 114 mg/dL (75-100) H 10/16/18 09:12 POC Glucose 184 (70-105) H 10/10/18 13:23 Calcium 8.8 mg/dL (8.4-10.2) 10/16/18 09:12 Phosphorus 3.30 mg/dL (2.5-4.5) 10/13/18 05:31 Magnesium 2.20 mg/dL (1.7-2.3) 10/13/18 05:31 Total Bilirubin 0.20 mg/dL (0.1-1.2) 10/13/18 05:31 AST 22 units/L (5-40) 10/13/18 05:31 ALT 27 units/L (7-56) 10/13/18 05:31 Alkaline Phosphatase 115 units/L (35-129) 10/13/18 05:31 Ammonia < 10.0 umol/L (25-60) L 10/11/18 16:55 Troponin T < 0.010 ng/mL (0.00-0.029) 10/10/18 17:41 Total Protein 6.5 g/dL (6.3-8.2) 10/13/18 05:31 Albumin 2.8 g/dL (3.9-5) L 10/13/18 05:31 Albumin/Globulin Ratio 0.8 % 10/13/18 05:31 TSH 15.800 mlU/mL (0.270-4.200) H 10/12/18 05:30 Free T4 0.78 ng/dL (0.76-1.46) 10/12/18 05:30 Thyroxine (T4) 4.8 ug/dL (4.0-12.0) 10/12/18 16:30 Urine Color Yellow (Yellow) 10/11/18 11:05 Urine Turbidity Clear (Clear) 10/11/18 11:05 Urine pH 5.0 (5.0-7.0) 10/11/18 11:05 Ur Specific [place] 1.038 (1.003-1.030) H 10/11/18 11:05 Urine Protein <15 mg/dl mg/dL (Negative) 10/11/18 11:05 Urine Glucose (UA) Neg mg/dL (Negative) 10/11/18 11:05 Urine Ketones Neg mg/dL (Negative) 10/11/18 11:05 Urine Blood Neg (Negative) 10/11/18 11:05 Urine Nitrite Neg (Negative) 10/11/18 11:05 Urine Bilirubin Neg (Negative) 10/11/18 11:05 Urine Urobilinogen 4.0 mg/dL (<2.0) 10/11/18 11:05 Ur Leukocyte Esterase Neg (Negative) 10/11/18 11:05 Urine WBC (Auto) 1.0 /HPF (0.0-6.0) 10/11/18 11:05 Urine RBC (Auto) 1.0 /HPF (0.0-6.0) 10/11/18 11:05 U Epithel Cells (Auto) < 1.0 /HPF (0-13.0) 10/11/18 11:05 CSF Appearance Clear 10/11/18 09:52 CSF Color Colorless 10/11/18 09:52 CSF WBC 1 /mm3 (1-10) 10/11/18 09:52 CSF RBC 0 /mm3 (0-0) 10/11/18 09:52 CSF Lymphocytes % 100 % (40-80) 10/11/18 09:52 CSF Pathologist Review C 10/11/18 09:52 CSF Glucose 68 mg/dL 10/11/18 09:52 CSF Total Protein 45 mg/dL 10/11/18 09:52 CSF VDRL Nonreactive (Nonreactive) 10/12/18 10:29 Urine Opiates Screen Presumptive negative 10/11/18 11:05 Urine Methadone Screen Presumptive negative 10/11/18 11:05 Ur Barbiturates Screen Presumptive negative 10/11/18 11:05 Ur Phencyclidine Scrn Presumptive negative 10/11/18 11:05 Ur Amphetamines Screen Presumptive negative 10/11/18 11:05 U Benzodiazepines Scrn Presumptive negative 10/11/18 11:05 Urine Cocaine Screen Presumptive negative 10/11/18 11:05 U Marijuana (THC) Screen Presumptive negative 10/11/18 11:05 Drugs of Abuse Note Disclamer 10/11/18 11:05 Miscellaneous Test Flexitest 1 10/12/18 10:29 Active Medications - Current Medications Current Medications: Generic Name Dose Route Start Last Admin Trade Name Freq PRN Reason Stop Dose Admin Acetaminophen 650 mg 10/10/18 19:14 Tylenol PO Q4H PRN Pain MILD(1-3)/Fever >100.5/QUINN Albuterol 2.5 mg 10/10/18 19:14 Proventil IH Q4HRT PRN Shortness Of Breath Azithromycin 1,200 mg 10/13/18 10:00 10/13/18 10:29 Zithromax PO 1,200 mg We DILIA Administration Clobetasol Propionate 1 applic 10/11/18 22:00 10/16/18 22:28 Temovate TP 1 applic BID DILIA Administration Darunavir 800 mg 10/12/18 14:00 10/16/18 11:46 Prezista PO 800 mg QDAY DILIA Administration Emtricitabine 200 mg 10/12/18 13:45 10/16/18 11:46 Emtriva PO 200 mg QDAY DILIA Administration Gabapentin 300 mg 10/10/18 22:00 10/16/18 22:20 Neurontin PO 300 mg BID DILIA Administration Dextrose 1,000 mls @ 125 mls/hr 10/11/18 12:00 10/16/18 03:48 D5w IV 125 mls/hr DIRECT DILIA Administration Levetiracetam 500 mg 10/13/18 22:00 10/16/18 22:20 Keppra PO 500 mg BID DILIA Administration Levothyroxine Sodium 112 mcg 10/14/18 06:00 10/17/18 06:49 Synthroid PO 112 mcg DAILY@0600 DILIA Administration Levothyroxine Sodium 25 mcg 10/14/18 06:00 10/17/18 06:49 Synthroid PO 25 mcg DAILY@0600 DILIA Administration Lorazepam 2 mg 10/12/18 14:45 Ativan IV Q1H PRN Seizures Ondansetron HCl 4 mg 10/10/18 19:14 Zofran IV Q8H PRN Nausea And Vomiting Oxycodone/Acetaminophen 1 tab 10/10/18 19:14 10/13/18 10:50 Percocet 5/325 PO 1 tab Q6H PRN Administration Pain, Moderate (4-6) Pantoprazole Sodium 40 mg 10/11/18 10:00 10/16/18 11:46 Protonix PO 40 mg QDAY DILIA Administration Prednisone 40 mg 10/14/18 15:00 10/16/18 11:45 Deltasone PO 40 mg QDAY DILIA Administration Ritonavir 100 mg 10/12/18 14:00 10/16/18 11:46 Norvir PO 100 mg DAILY DILIA Administration Sodium Chloride 10 ml 10/10/18 22:00 10/16/18 22:21 Sodium Chloride Flush Syringe 10 Ml IV 10 ml BID DILIA Administration Sodium Chloride 10 ml 10/10/18 19:14 Sodium Chloride Flush Syringe 10 Ml IV PRN PRN LINE FLUSH Tenofovir Disoproxil Fumarate 300 mg 10/12/18 13:45 10/16/18 11:45 Viread PO 300 mg QDAY DILIA Administration Trimethoprim/Sulfamethoxazole 1 each 10/11/18 10:00 10/16/18 11:46 Bactrim Ds PO 1 each DAILY DILIA Administration Zolpidem Tartrate 10 mg 10/10/18 19:15 10/16/18 22:20 Ambien PO 10 mg QHS PRN Administration Insomnia Nutrition/Malnutrition Assess - Dietary Evaluation Nutrition/Malnutrition Findings: Nutrition Notes Start: 10/15/18 16:47 Freq: Status: Active Protocol: Document 10/15/18 16:47 RM (Rec: 10/15/18 16:53 RM [id number]) Nutrition Notes Need for Assessment generated from: LOS Initial or Follow up Assessment Current Diagnosis Acute Kidney Injury Other Pertinent Diagnosis HIV/AIDS, Acute encephalopathy , Progress multifocal leukoencephalopathy Current Diet Regular Labs/Tests Reviewed Pertinent Medications Reviewed Height 5 ft 9 in Weight 82.4 kg [place] Body Weight (kg) 72.72 BMI 26.8 Subjective/Other Information Screened for LOS. Per tech pt eats 50% of more of his meals. Recorded PO intake 46% X 4 days. Burn Absent Trauma Absent #1 Nutrition Diagnosis Inadequate oral intake Etiology acute encephalopathy, progressive multifocal leukoencephalopathy As Evidenced by Signs and Symptoms pt tech statement that pt eats 50% or more of his meals, recorded PO intake 46% X 4 days Is patient on ventilator? No Is Patient Ambulatory and/or Out of Bed No REE-(Hodgeman-St. Jeor-confined to bed) 2071.100 Calculation Used for Recommendations Hodgeman-St Jeor Additional Notes Protein Needs: 82-107g (1-1.3g /kg) Fluid Needs: 1 ml/kcal Nutrition Intervention Change Diet Order: Continue current Add Supplement/Snack (indicate name/kcal Ensure Enlive 1 daily /protein ) Provides kCal: 350 Provides Protein (gm) 20 Goal #1 Meet at least 75% of calorie and protein needs via PO and ONS intakes Anticipated Discharge Needs: Regular diet Follow-Up By: 10/19/18 Additional Comments Follow for PO and ONS intakes
[2018-10-17 09:02] LABS: BUN/Creatinine Ratio 14; Blood Urea Nitrogen 18 mg/dL (9-20); Calcium 9.1 mg/dL (8.4-10.2); Hemolysis Index 5
[2018-10-17] MEDS: VIREAD PO SCH (10:16)
[2018-10-17] MEDS: KEPPRA PO SCH ×2 (10:16→22:53)
[2018-10-17] MEDS: PREZISTA PO SCH (10:16)
[2018-10-17] MEDS: NORVIR PO SCH (10:16)
[2018-10-17] MEDS: PROTONIX PO SCH (10:16)
[2018-10-17] MEDS: BACTRIM DS PO SCH (10:16)
[2018-10-17] MEDS: DELTASONE PO SCH (10:16)
[2018-10-17] MEDS: EMTRIVA PO SCH (10:16)
[2018-10-17] MEDS: NEURONTIN PO SCH ×2 (10:17→22:53)
[2018-10-17] MEDS: SODIUM CHLORIDE FLUSH SYRINGE 10 ML IV SCH ×2 (10:17→22:54)
[2018-10-17] MEDS: TEMOVATE TP SCH ×2 (11:01→22:54)
[2018-10-18] MEDS: SYNTHROID PO SCH ×2 (06:03)
[2018-10-18] MEDS: VIREAD PO SCH (09:50)
[2018-10-18] MEDS: KEPPRA PO SCH (09:50)
[2018-10-18] MEDS: EMTRIVA PO SCH (09:50)
[2018-10-18] MEDS: DELTASONE PO SCH (09:50)
[2018-10-18] MEDS: NEURONTIN PO SCH (09:50)
[2018-10-18] MEDS: PREZISTA PO SCH (09:50)
[2018-10-18] MEDS: NORVIR PO SCH (09:51)
[2018-10-18] MEDS: PROTONIX PO SCH (09:51)
[2018-10-18] MEDS: BACTRIM DS PO SCH (09:51)
[2018-10-18] MEDS: SODIUM CHLORIDE FLUSH SYRINGE 10 ML IV SCH (09:51)
[2018-10-18] MEDS: TEMOVATE TP SCH (09:51)
--- NOTE | 2018-10-18 12:49 | Discharge Summary ---
Providers - Providers Date of Admission: 10/10/18 19:14 Date of discharge: 10/18/18 Attending physician: ARABELLA RODRIGES 10/10/18 19:42 Consult to Case Management [CONS] Routine Services Needed at Discharge: Food Inspector Notified:: disability case manager Additional Physician Instructions: Discharge planning/placement Physical Therapy Evaluation and Treat [CONS] Routine Comment: Reason For Exam: weakness 10/10/18 19:59 Consult to Physician [CONS] Routine Comment: Consulting Provider: MATHEW HASTINGS Physician Instructions: Reason For Exam: AIDS/PML 10/11/18 11:05 Speech Therapy Evaluation and Treat [CONS] Routine Reason For Exam: dysphagia 10/11/18 11:08 Consult to Physician [CONS] Routine Comment: Consulting Provider: LUIS PIERCE Physician Instructions: Reason For Exam: bloody diarrhea, aids 10/12/18 14:42 Consult to Physician [CONS] Routine Comment: Consulting Provider: KYLE CANNON Physician Instructions: Reason For Exam: seizure/HIV/Encephalopathy [facility] Hospital[facility] Condition: Stable Hospital course: 38-year-old man with history of HIV, brought in by his daughter for altered mental status as he had repetitive speech, he was dazed. Per his daughter and he was also drooling and coughing he has had bloody diarrhea, and had a brain scan 3 weeks previously and was told that his viral load was high and his HAART regimen had just been changed --HIV/AIDS; management per ID ID cleared for discharge and follow-up as outpatient --New onset seizures; seizure precautions Ativan as needed, patient just had an MRI lumbar puncture, ID following Neurology evaluated, EEG, grade 3 encephalopathy Continue Keppra, do not drive --Acute metabolic encephalopathy; multifactorial Neuro checks, neuro workup, no acute abnormality neurology following --Bradycardia; improved persistent, cardiology following --hypernatremia; significant improvement, Increase water intake --PATRICIO : Due to vasomotor nephropathy Gentle hydration, monitor renal function and avoid nephrotoxins --Hyperthyroidism; with elevated TSH Normal T4, repeat TFTs --Tobacco use; smoking cessation counseling Nicotine patch if needed --Eczema/AIDS dermatitis; --DVT prophylaxis Lovenox ID cleared for discharge Disposition: - TO HOME OR SELFCARE Time spent for discharge: 31 min Core Measure Documentation - Palliative Care Palliative Care/ Comfort Measures: Not Applicable - Core Measures Any of the following diagnoses?: none Exam - Constitutional Vitals: Temp Pulse Resp BP Pulse Ox 98.3 F 58 L 18 118/76 99 10/18/18 04:10 10/18/18 04:10 10/18/18 04:10 10/18/18 04:10 10/18/18 04:10 General appearance: Present: no acute distress, well-nourished - EENT Eyes: Present: PERRL, EOM intact - Neck Neck: Present: supple, normal ROM - Respiratory Respiratory effort: normal Respiratory: bilateral: diminished, negative: rales, rhonchi, wheezing - Cardiovascular Rhythm: regular Heart Sounds: Present: S1 & S2 - Extremities Extremities: no ischemia, No edema - Abdominal General gastrointestinal: Present: soft, non-tender, non-distended, normal bowel sounds - Integumentary Integumentary: Present: clear, warm - Musculoskeletal Musculoskeletal: strength equal bilaterally - Psychiatric Psychiatric: appropriate mood/affect, cooperative - Neurologic Neurologic: moves all extremities Plan Activity: advance as tolerated, no driving until cleared by PCP, other (seizure precautions) Diet: regular Additional Instructions: Do not drive until cleared by neurologist[because of seizures]. Follow infectious diseases physician in 2 weeks. Follow-up private neurologist in 1-2 weeks Follow up with: PRIMARY CARE, [Referring] - 3-5 Days MATHEW HASTINGS MD [Staff Physician] - 14 Days ANNE TRISTAN MD [Staff Physician] - 7 Days Prescriptions: Sulfamethoxazole/Trimethoprim [Bactrim DS TAB] 1 each PO DAILY #30 tablet predniSONE [Deltasone] 10 mg PO QDAY #49 tab levETIRAcetam [Keppra] 500 mg PO BID #60 oral.liqd Ammonium Lactate [Lac-Hydrin Lotion] 1 applicatio TP BID #1 bottle Gabapentin [Neurontin] 300 mg PO BID #60 capsule Levothyroxine Sodium [Synthroid] 137 mcg PO DAILY #30 tablet Clobetasol 0.05% [Temovate] 1 applic TP BID 30 Days tube Azithromycin [Zithromax TAB] 1,200 mg PO We #4 tablet
[2018-10-18 14:54] VITALS: BP 98/48
== END 2018-10-18 17:05 | disposition home health service (06) | DRG 974 ==
LOC: ED 13:14 → 3A 19:14 → 4A 10-11 02:59 → 3A 10-13 13:30
PROVIDERS: ADMIT Internal Medicine; ATTEND Internal Medicine
PROC: 009U3ZX Drainage of Spinal Canal, Percutaneous Approach, Diagnostic (ICD-10-PCS; principal; 2018-10-12)
PROC: B01B1ZZ Fluoroscopy of Spinal Cord using Low Osmolar Contrast (ICD-10-PCS; 2018-10-12)
DX: B20 Human immunodeficiency virus [HIV] disease (principal); N17.0 Acute kidney failure with tubular necrosis; A81.2 Progressive multifocal leukoencephalopathy; G93.41 Metabolic encephalopathy; G03.9 Meningitis, unspecified; E87.0 Hyperosmolality and hypernatremia; D62 Acute posthemorrhagic anemia; R00.1 Bradycardia, unspecified; F17.200 Nicotine dependence, unspecified, uncomplicated; E05.90 Thyrotoxicosis, unspecified without thyrotoxic crisis or storm; L30.9 Dermatitis, unspecified; G62.9 Polyneuropathy, unspecified; E86.0 Dehydration; E83.42 Hypomagnesemia; R56.9 Unspecified convulsions; Z91.14 Patient's other noncompliance with medication regimen; Z71.6 Tobacco abuse counseling; Z79.899 Other long term (current) drug therapy
CPT/HCPCS: 36415; 62270; 70450; 70553; 71045; 74176; 77003; 80048; 80053; 80307; 81001; 82140; 82947; 82962; 83735; 84100; 84160; 84436; 84439; 84443; 84484; 85007; 85025; 85049; 85610; 85730; 86403; 86592; 87116; 87497; 89051; 93005; 93010; 95819; 99406; G0378; A9577; J1650; J2060; J3246; J3475; J7030; J7070; J7512